=== PATIENT | female | born 1980 | race Caucasian/White ===

== ENCOUNTER → 2021-02-12 20:14 | Outpatient (CLI) | payer BC, SELFPAY | PROVIDERS: Visit Provider Nurse Practitioner Family | DX: Z20.822 Contact with and (suspected) exposure to COVID-19 (principal) | CPT/HCPCS: U0003 ==

== ENCOUNTER 2021-03-26 06:04 | Emergency (ER) | payer BC, SELFPAY ==
[2021-03-26] VITALS (7 sets, daily range): BP systolic 109–160; BP diastolic 68–102; PULSE 62–88; RESP 16–23; TEMP 36.8; O2SAT 98–100; BMI 29.0; BMI 33.3
--- NOTE | 2021-03-26 05:59 | ECG_ITS ---
APPROVED REPORT Exam: Resting ECG HR:60 bpm ECG Measurements Heart Rate 60 AXES WA 144 P 15 QRSd 82 QRS 38 QT 384 T 45 QTc 384 Conclusion Normal sinus rhythm Normal ECG Electronically signed by : Michael Ron MD 03/28/2021 17:51:47
--- NOTE | 2021-03-26 06:22 | XR_ITS ---
PROCEDURE INFORMATION: Exam: XR Chest Exam date and time: 03/26/2021 6:22 AM Age: 41 years old Clinical indication: Pain; On breathing; Additional info: Cp TECHNIQUE: Imaging protocol: XR of the chest. Views: 2 views. COMPARISON: No relevant prior studies available. FINDINGS: Lungs: No focal airspace disease. Pleural spaces: Unremarkable. No pleural effusion. No pneumothorax. Heart/Mediastinum: Cardiomediastinal silhouette is within normal limits. Bones/joints: Unremarkable. IMPRESSION: No acute cardiopulmonary abnormality.
--- NOTE | 2021-03-26 06:25 | HMH.EDCP ---
ED Disposition Clinical Impression: Elevated BP without diagnosis of hypertension Chest pain Qualifiers: Chest pain type: precordial pain Qualified Code(s): R07.2 - Precordial pain Disposition: Home, Self-Care Condition on Discharge: Good Instructions: DI for Chest Pain Additional Instructions: see pcp and card for follow up Referrals: Provider,Aiden, [Primary Care Provider] - Fabrice Mendoza MD [Staff Physician] - - Critical Care Critical Care Time: No Attestation: On , the high probability of a clinically significant, sudden or life threatening deterioration of the following system(s) required my full and direct attention, intervention and personal management. The time I documented below is in addition to time spent performing reported procedures but includes the following listed in this critical care notation. Medical Decision Making - Medical Records Medical records reviewed: Yes: I reviewed the patient's medical records. - [place] Inquiry Pt receiving controlled substance: No Vital Signs: 03/26/21 06:05 03/26/21 07:00 Temperature 98.2 F Temperature Source Oral Pulse Rate 68 Pulse Rate [Right] 88 Respiratory Rate 23 18 Blood Pressure 122/78 Blood Pressure [Left Arm] 160/102 H Blood Pressure Mean [Left Arm] 121 Blood Pressure Source [Left Arm] Manual Cuff/ Auscultation 02 Sat by Pulse Oximetry 100 98 Oxygen Delivery Method Room Air - Lab Data Lab results reviewed: Yes: I reviewed the patient's lab results. Lab Results 03/26/21 06:06: WBC 7.2, RBC 4.83, Hgb 14.6, Hct 43.8, MCV 90.6, MCH 30.1, MCHC 33.3, RDW 13.8, Plt Count 284, MPV 9.5, Neut % (Auto) 58.1, Lymph % (Auto) 34.8, [place] % (Auto) 5.1, Eos % (Auto) 1.0, Baso % (Auto) 1.0, Neut # (Auto) 4.2, Lymph # (Auto) 2.5, [place] # (Auto) 0.4, Eos # (Auto) 0.1, Baso # (Auto) 0.1, ESR 24 H 03/26/21 06:06: Sodium 139, Potassium 3.5, Chloride 108 H, Carbon Dioxide 23, Anion Gap 11.5, BUN 10, Creatinine 0.70, Estimated Creat Clear 150, Estimated GFR 92, Est GFR ( Amer) 111, Glucose 102 H, Calcium 9.1, Magnesium 1.9, Total Bilirubin 0.3, Direct Bilirubin 0.1, Conjugated Bilirubin 0.0, Indirect Bilirubin 0.2, Unconjugated Bilirubin 0.2, AST 28, ALT 16, Alkaline Phosphatase 116, Troponin I < 0.01, C-Reactive Protein 3.1, Total Protein 7.5, Albumin 4.0, Procalcitonin 0.046 03/26/21 06:06: Triglycerides 126, Cholesterol 156, LDL Cholesterol Direct 93.83 L, VLDL Cholesterol 25, HDL Cholesterol 39 L, Cholesterol/HDL Ratio 4.0 H 03/26/21 09:00: Troponin I < 0.01 Result diagrams: 03/26/21 06:06 03/26/21 06:06 Orders (Tests/Meds): ED MEDICATIONS Discontinued Medications Generic Name Dose Route Start Last Admin Trade Name Freq PRN Reason Stop Dose Admin Aspirin 324 mg 03/26/21 06:17 03/26/21 06:21 Aspirin 81mg Chewable Tablet PO 03/26/21 06:18 324 mg ONCE ONE Administration Sodium Chloride 1,000 mls @ 999 mls/hr 03/26/21 06:30 03/26/21 06:20 Sod Chlor 0.9% 1000ml Bag IV 03/26/21 07:30 999 mls/hr .Q1H1M SONJA Administration Metoprolol Tartrate 25 mg 03/26/21 08:20 03/26/21 08:30 Metoprolol Tartrate 50mg Tablet PO 03/26/21 08:21 25 mg ONCE ONE Administration Nitroglycerin 0.4 mg 03/26/21 06:17 03/26/21 06:20 Nitroglycerin 0.4mg Sl Tablet SL 03/26/21 06:18 0.4 1000units ONCE ONE Administration Ondansetron HCl 4 mg 03/26/21 06:17 03/26/21 06:19 Ondansetron 4mg/2ml Vial IV 03/26/21 06:18 4 mg ONCE ONE Administration ORDERS Category Date Time Status Troponin I Q3H Lab 03/26/21 12:30 Ordered Urinalysis and Microscopic Stat Lab 03/26/21 06:22 Ordered - Radiology Data #1 Image(s): Chest Image Reviewed: Yes I reviewed the patient's radiology image Preliminary Findings: Normal/NAD - ECG Data Tracing #1 Normal Sinus Rhythm: Yes Ischemic changes: non-specific ST-T wave changes - Physician Consults Physician Consulted: wes lopez Reason -: Pt cesar
--- NOTE | 2021-03-26 06:46 | CA_ITS ---
APPROVED REPORT EXAM: Comprehensive 2D, Doppler, and color-flow Echocardiogram Reactor Kettle Operator: Shruthi Prasad RDCS Ht: 5 ft 5 in Wt: 200lbs BSA: 1.98 BP: 122/78 mmHg Indications: CP,HTN 2D Dimensions LVOT 1.69 cm (M/F) 1.5-2.5 M-Mode Dimensions RVDd 2.42 cm (0.9-2.6) LA Diam 3.15 cm (1.9-4.0) LVDd 5.24 cm (3.5-5.7) Ao Diam 3.35 cm (2.0-3.7) LVDs 3.45 cm (3.5-5.7) IVSd 0.83 cm (0.6-1.1) PWd 0.79 cm (0.6-1.1) EF (Teich) 62.70% FS 34.20% EDV (Teich) 131.80 mL TAPSE 2.95 (<1.7) ESV (Teich) 49.10 mL LV Diastology E Decel Time 127.00 (160-240 msec) E/A Ratio 1.2 MED E' 14.30 (< 7 cm/sec) E'/MED E' Ratio 5.01 (>14) LAT E' 12.90 (<10 cm/sec) E/LAT E' Ratio 5.55 (>14) Mitral Valve MV E Max Everardo. 72.00 (40-130 cm/s) MV A Velocity 60.00 (40-130 cm/s) E/A Ratio 1.19 MV Decel. Time 127.00 (160-240 ms) MV PHT 37.00 ms Left Ventricle Left atrium is normal size, left ventricle is normal size, there is no concentric left ventricular hypertrophy, visually estimated ejection fraction 55% with no regional wall motion abnormality, diastolic parameters are within normal range. Right Ventricle Right atrium and right ventricle are normal size and contractility. Aortic Valve Aortic valve is grossly normal, there is no aortic stenosis or aortic insufficiency. Mitral Valve Mitral valve grossly normal, there is trace mitral regurgitation. Tricuspid Valve Tricuspid valve grossly normal, there is trace tricuspid regurgitation, tricuspid regurgitation jet velocity is inadequate for calculation of the right ventricular systolic pressure. Pulmonic Valve Pulmonic valve is poorly visualized. Great Vessels Aortic root is normal size. Inferior vena cava is normal size with normal inspiratory collapse. Pericardium No significant pericardial effusion noted. Conclusion 1. Normal left ventricular size, preserved left ventricular systolic function, visually estimated ejection fraction 55% with no regional wall motion abnormality, diastolic parameters are within normal range. 2. Trace mitral and tricuspid regurgitation. 3. No significant pericardial effusion noted. 4. Inferior vena cava is normal size with normal inspiratory collapse. Electronically signed by : Casa Fontenot MD 03/26/2021 19:41:56
[2021-03-26 07:09] LABS: Basophils # 0.1 K/mm3 (0-0.2); Eosinophils # 0.1 K/mm3 (0.0-0.4); Hematocrit 43.8 % (37.0-47.0); Hemoglobin 14.6 g/dL (12.2-16.2); Lymphocytes # 2.5 K/mm3 (0.7-4.5); Lymphocytes % 34.8 % (10-50); Mean Corpuscular HGB Conc 33.3 g/dL (31.8-35.4); Mean Corpuscular Hemoglobin 30.1 pg (27.0-31.2); Mean Corpuscular Volume 90.6 fl (81-99); Mean Platelet Volume 9.5 fl (7.4-10.4); Monocytes # 0.4 K/mm3 (0.1-1.0); Monocytes % 5.1 % (1.7-9.3); Neutrophils # 4.2 K/mm3 (1.8-7.8); Neutrophils % 58.1 % (37.0-80.0); Platelet Count 284 K/mm3 (142-424); Red Blood Count 4.83 M/mm3 (4.20-5.40); Red Cell Distribution Width 13.8 % (11.5-17.5); White Blood Count 7.2 K/mm3 (4.8-10.8)
[2021-03-26 07:15] LABS: Chloride 108 mmol/L (98-107); Potassium 3.5 mmoL/L (3.5-5.1); Sodium 139 mmol/L (136-145)
[2021-03-26 07:18] LABS: Alanine Aminotransferase 16 U/L (12-78); Alkaline Phosphatase 116 U/L (38-126); Anion Gap 11.5 mEq/L (5-15); Aspartate Amino Transferase 28 U/L (14-36); Bilirubin,Direct 0.1 mg/dl (0.0-0.4); Bilirubin,Indirect 0.2 mg/dL (0.0-0.9); Bilirubin,Total 0.3 mg/dl (0.2-1.3); Bilirubin,Unconjugated 0.2 mg/dL (0.0-1.1); Calcium 9.1 mg/dl (8.4-10.2); Carbon Dioxide 23 mmol/L (22.0-30.0); Glucose 102 mg/dl (74-100); Total Protein,Serum 7.5 g/dl (6.3-8.2)
[2021-03-26 07:19] LABS: Magnesium 1.9 mg/dl (1.6-2.3)
[2021-03-26 07:24] LABS: C-Reactive Protein 3.1 mg/L (0-4)
[2021-03-26 07:35] LABS: Erythrocyte Sedimentation Rate 24 mm/hr (0-20)
[2021-03-26 07:38] LABS: Blood Urea Nitrogen 10 mg/dl (7-17)
[2021-03-26 07:39] LABS: Creatinine Clearance Estimated 150 mL/min (50-200); Estimated Glomerular Filt Rate 92 ml/min (>60); GFR (African American) 111 ML/MIN (>60)
[2021-03-26 07:50] LABS: Troponin I < 0.01 ng/ml (0.00-0.034)
--- NOTE | 2021-03-26 08:20 | HMH.CNCARD ---
History of Present Illness Consult date: 03/26/21 Requesting physician: Omid Rangel Consult reason: chest pain Chief complaint: chest pain Additional Medical History:: 1. Implanted control, 02/2021 2. Elevated BP 3. FH of polycythemia vera in father 4. Recent wt gain 5. History of migraine headaches. History of present illness: 41-year-old white female with no prior medical history or routine medications presented to the emergency department for recurrent episodes of chest discomfort described as a pressure sensation over the last 24 hours. Patient relates headache and blurred vision yesterday with a history of migraine headaches for which she took Excedrin. After that blood pressure noted to be in the 160/109 mm Hg range by home blood pressure reading. She was able to lie down and go to sleep but was awakened around 4 AM with recurrent heaviness and pressure in the chest with radiation of numbness sensation to the left arm. Repeat blood pressure reading at home noted to be 160/102 mmHg and patient decided to come to the ER for further evaluation. In the ER patient was given sublingual nitroglycerin x2 with resultant resolution of symptoms and significant improvement in blood pressure. EKG is sinus rhythm with no acute ST segment changes. Preliminary echocardiogram performed in the ER shows preserved ejection fraction with no wall motion abnormalities. Initial troponin is normal. Cardiology consulted for evaluation recommendations Patient denies history of hypertension, tobacco use, daily alcohol use or diabetes. Mother in her mid 70s from a heart attack. Father is alive in a chcf with a history of A. fib and hypertension related cardiomyopathy for which he has a AICD. [facility] History *Have you ever received a pneumonia vaccine?: No *Have you received a flu vaccine this season?: No (2019) Other Surgeries: Yes: No Previous Surgery - *Social History Smoking Status: Never smoker Alcohol Intake: never *Occupational Status:: employed *Travel in the last 8 weeks: Inside the [place] Family Hx:: Non-contributory Meds Home Medications Medication Instructions Recorded Confirmed Type No Known Home Medications 02/12/21 02/12/21 History Allergies Allergy/AdvReac Type Severity Reaction Status Date / Time No Known Allergies Allergy Unverified 02/12/21 17:14 Exam Vital signs and Labs for Last 24 Hours: Temp Pulse Resp BP Pulse Ox 98.2 F 68 18 122/78 98 03/26/21 06:05 03/26/21 07:00 03/26/21 07:00 03/26/21 07:00 03/26/21 07:00 Laboratory Results - last 24 hr 03/26/21 06:06: WBC 7.2, RBC 4.83, Hgb 14.6, Hct 43.8, MCV 90.6, MCH 30.1, MCHC 33.3, RDW 13.8, Plt Count 284, MPV 9.5, Neut % (Auto) 58.1, Lymph % (Auto) 34.8, [place] % (Auto) 5.1, Eos % (Auto) 1.0, Baso % (Auto) 1.0, Neut # (Auto) 4.2, Lymph # (Auto) 2.5, [place] # (Auto) 0.4, Eos # (Auto) 0.1, Baso # (Auto) 0.1, ESR 24 H 03/26/21 06:06: Sodium 139, Potassium 3.5, Chloride 108 H, Carbon Dioxide 23, Anion Gap 11.5, BUN 10, Creatinine 0.70, Estimated Creat Clear 150, Estimated GFR 92, Est GFR ( Amer) 111, Glucose 102 H, Calcium 9.1, Magnesium 1.9, Total Bilirubin 0.3, Direct Bilirubin 0.1, Conjugated Bilirubin 0.0, Indirect Bilirubin 0.2, Unconjugated Bilirubin 0.2, AST 28, ALT 16, Alkaline Phosphatase 116, Troponin I < 0.01, C-Reactive Protein 3.1, Total Protein 7.5, Albumin 4.0 I & O for Last 24 hours: Intake & Output 03/23/21 03/24/21 03/25/21 03/26/21 11:59 11:59 11:59 11:59 Weight 200 lb - Constitutional no acute distress - *Routine HEENT Exam Head: Present: normocephalic Eye: Present: EOMI, PERRL ENT: Present: mucous membranes moist - *Routine Neck Exam Present: supple. Absent: lymphadenopathy - *Routine Respiratory Exam Present: CTA bilaterally - *Routine Cardiovascular Exam Present: RRR - *Routine Abdominal Exam Present: soft, normoactive bowel sounds. Absent: tenderness - *
[2021-03-26 08:24] LABS: Cholesterol 156 mg/dl (140-200); HDL Cholesterol 39 mg/dl (40-60); Procalcitonin 0.046 ng/mL (0.0-2.0); Triglycerides 126 mg/dl (30-150); VLDL Cholesterol 25 mg/dL (0-40)
--- NOTE | 2021-03-26 08:30 | PC.NURSE ---
TOD WANTED NTG PASTE TO BE REMOVED , REMOVED AT 0825
--- NOTE | 2021-03-26 08:31 | PC.NURSE ---
TOD SAID IF 2ND TROP IS OK SHE CAN BE DISCHARGED AND F/U IN OFFICE
[2021-03-26 08:35] LABS: Direct LDL Cholesterol 93.83 mg/dL (100-129)
--- NOTE | 2021-03-26 08:59 | PC.NURSE ---
2ND TROP SENT TO LAB
[2021-03-26 09:50] LABS: Troponin I < 0.01 ng/ml (0.00-0.034)
== END 2021-03-26 10:52 | disposition home or self-care (01) ==
PROVIDERS: Emergency Provider Emergency Medicine
DX: R07.2 Precordial pain (principal); R03.0 Elevated blood-pressure reading, without diagnosis of hypertension
CPT/HCPCS: 71046; 80048; 80061; 80076; 83735; 84145; 84484; 85025; 85651; 86140; 93005; 93306; 96365; 96375; 99283; J2405

== ENCOUNTER → 2021-04-09 11:00 | Outpatient (CLI) | payer BC, SELFPAY ==
--- NOTE | 2021-04-09 | CA_ITS ---
APPROVED REPORT Exam: Exercise Treadmill Technologist: Candice Young Ht: 5 ft 7 in Wt: 213 lbs BSA: 2.08 m2 HR: 58 bpm BP: 137/88 mmHg Indications: Chest pain Medical History Medications: Metoprolol, Etongestrel Stress Test Details Test: Janina HR Resting HR: 82 bpm Max Heart Rate (APMHR): 178.022263 bpm Max HR Achieved: 168 bpm Target HR (85% APMHR): 151.973602 bpm % of APMHR: 94.38 Recovery HR: 83 bpm BP Resting BP: 137.0/88.0 mmHg Max BP: 170.0/88.0 mmHg Recovery BP: 136.0/78.0 mmHg ECG Resting ECG: Normal sinus rhythm with NSSTTW abnormalities Clinical Reason for Termination: Dyspnea Exercise duration: 09:00 min Highest Stage Achieved: Exercise capacity: 10.1 METs Stress ECG Conclusion Negative stress test. Patient exercised on a janina protocol for 9 minutes to peak heart rate of 165 bpm (target heart rate 151 bpm) without chest pain, ST segment changes or significant arrhythmias. Total METS 10.1 with peak blood pressure 170/88 mmHg. See the nuclear report for further information. Test Summary REST 12:27 0.0 0.0 82 . 137/ 88 . . Stage 1 01:00 10.0 1.7 94 . . . . Stage 1 02:00 10.0 1.7 97 . . . . Stage 1 03:00 10.0 1.7 104 . 142/ 88 . . Stage 2 01:00 12.0 2.5 112 . . . . Stage 2 02:00 12.0 2.5 113 . . . . Stage 2 03:00 12.0 2.5 129 . 160/ 90 . . Stage 3 01:00 14.0 3.4 144 . . . . Stage 3 . . . . . . . Myoview Injected Stage 3 02:00 14.0 3.4 159 . . . . Stage 3 03:00 14.0 3.4 167 . . . Stop exercise at 09:00 RECOVERY 01:00 0.0 0.0 136 . . . . RECOVERY 02:00 0.0 0.0 114 . 170/ 88 . . RECOVERY 03:00 0.0 0.0 96 . 170/ 88 . . RECOVERY 04:00 0.0 0.0 87 . 170/ 88 . . RECOVERY 05:00 0.0 0.0 84 . 136/ 78 . . RECOVERY 05:17 0.0 0.0 89 . 136/ 78 . . Electronically signed by : Casa Fontenot MD 04/10/2021 06:33:26
--- NOTE | 2021-04-09 11:05 | NM_ITS ---
APPROVED REPORT Exam: Nuclear Stress Test Indication: Chest pain, HTN Patient Location: Outpatient Stress Tech: Candice Young NM Tech:Millie Sawyer, ARRT, RT (R)(N) Ht: 5 ft 7 in Wt: 210 lbs Bra Size: DD HR: 58 bpm BP: 137/88 mmHg BSA: 2.07 m2 BMI: 32.8 History: Chest pain, HTN Procedure: Patient exercised on Evgeny protocol 9:00 minutes and sec, resting heart rate 58 bpm, resting blood pressure 137/88 mmHg, with exercise maximum heart rate achived was 167 bpm which is 111 % of the maximum predicted heart rate and blood pressure was 160/90 mmHg. Test was stopped due to back spasm and SOA. Patient denied any complaint of chest pain. Patient has good exercise capacity, achieved 10.1 METs of workload on treadmill, the blood pressure response to exercise was Adequate. Electrocardiogram Resting electrocardiogram shows sinus rhythm, with exercise there is less than 1.[address] segment depression noted from the baseline EKG. The EKG portion of the exercise Myoview is negative for ischemia. Cardiac Stress and Resting SPECT Images: Cardiac Stress and Resting SPECT images were obtained using technetium 99m Myoview 29.2 mCi stress and 9.96 mCi at rest. Gated SPECT for analysis of segmental wall motion and calculation of the ejection fraction also done. Cardiac stress and resting SPECT images show uniform myocardial activity without segmental perfusion abnormality, computer derived ejection fraction is 55% with no regional wall motion abnormality, right ventricle is normal size and contractility. Conclusion: 1. The EKG portion of the exercise Myoview is negative for ischemia, patient has good exercise capacity achieved 10.1 METs of workload on treadmill, the blood pressure response to exercise was adequate, there was no exercise-induced chest discomfort. 2. No scintigraphic evidence of reversible ischemia seen, computer derived ejection fraction is 55% with no regional wall motion abnormality, right ventricle is normal size and contractility. 3. Normal exercise Myoview study. Electronically signed by : Casa Fontenot MD 04/10/2021 06:42:17
--- NOTE | 2021-04-09 14:09 | HMH.ITSHM ---
Current Home Medications as stated by this patient Gorge Frias or residential sales representative. []METOPROLOL ESTRONOGESTREL
== END ==
PROVIDERS: PCP Nurse Practitioner Family; Visit Provider Physician Assistant
DX: R07.9 Chest pain, unspecified (principal)
CPT/HCPCS: 78452; 93017; A9502

== ENCOUNTER → 2023-02-02 08:58 | Outpatient (CLI) | payer MEDICAID, SELFPAY ==
[2023-02-02 09:40] LABS: Basophils % 0.5 % (0.1-2.0); Eosinophils # 0.2 K/mm3 (0.0-0.4); Eosinophils % 4.2 % (0.1-12.0); Hemoglobin 14.5 g/dL (12.2-16.2); Lymphocytes # 2.1 K/mm3 (0.7-4.5); Lymphocytes % 37.8 % (10-50); Mean Corpuscular Volume 87.8 fl (81-99); Mean Platelet Volume 8.8 fl (7.4-10.4); Monocytes # 0.3 K/mm3 (0.1-1.0); Monocytes % 4.9 % (1.7-9.3); Neutrophils # 2.9 K/mm3 (1.8-7.8); Neutrophils % 52.7 % (37.0-80.0); Platelet Count 284 K/mm3 (142-424); Red Blood Count 5.01 M/mm3 (4.20-5.40); White Blood Count 5.4 K/mm3 (4.8-10.8)
[2023-02-02 10:09] LABS: Alanine Aminotransferase 29 U/L (12-78); Albumin Level 4.2 g/dl (3.5-5.0); Alkaline Phosphatase 128 U/L (38-126); Anion Gap 13.6 mEq/L (5-15); Aspartate Amino Transferase 24 U/L (14-36); Bilirubin,Indirect 0.7 mg/dL (0.0-0.9); Bilirubin,Total 0.7 mg/dl (0.2-1.3); Bilirubin,Unconjugated 0.7 mg/dL (0.0-1.1); Blood Urea Nitrogen 9 mg/dl (7-17); Calcium 9.1 mg/dl (8.4-10.2); Carbon Dioxide 21 mmol/L (22.0-30.0); Chloride 109 mmol/L (98-107); Chol/HDL Ratio 4.1 (1-3.5); Cholesterol 142 mg/dl (140-200); Estimated Glomerular Filt Rate 78 ml/min (>60); GFR (African American) 94 ML/MIN (>60); Glucose 93 mg/dl (74-100); HDL Cholesterol 35 mg/dl (40-60); Potassium 3.6 mmoL/L (3.5-5.1); Sodium 140 mmol/L (136-145); Total Protein,Serum 7.5 g/dl (6.3-8.2); Triglycerides 76 mg/dl (30-150); VLDL Cholesterol 15 mg/dL (0-40)
[2023-02-02 10:20] LABS: Direct LDL Cholesterol 88.56 mg/dL (100-129)
[2023-02-02 10:24] LABS: Free T4 (Free Thyroxine) 1.07 ng/dl (0.78-2.19)
[2023-02-02 10:39] LABS: Thyroid Stimulating Hormone 1.01 uIU/mL (0.465-4.68)
== END ==
PROVIDERS: PCP Nurse Practitioner Family; Visit Provider Nurse Practitioner
DX: R06.00 Dyspnea, unspecified (principal); I11.9 Hypertensive heart disease without heart failure; E11.9 Type 2 diabetes mellitus without complications; E78.5 Hyperlipidemia, unspecified; I63.9 Cerebral infarction, unspecified
CPT/HCPCS: 36415; 80048; 80061; 80076; 84439; 84443; 85025

== ENCOUNTER → 2023-04-22 08:13 | Outpatient (CLI) | payer MEDICAID, SELFPAY ==
[2023-04-22 10:05] LABS: Anion Gap 14.8 mEq/L (5-15); Blood Urea Nitrogen 13 mg/dl (7-17); Calcium 9.2 mg/dl (8.4-10.2); Carbon Dioxide 24 mmol/L (22.0-30.0); Chloride 103 mmol/L (98-107); Estimated Glomerular Filt Rate 78 ml/min (>60); GFR (African American) 94 ML/MIN (>60); Glucose 98 mg/dl (74-100); Potassium 3.8 mmoL/L (3.5-5.1); Sodium 138 mmol/L (136-145)
== END ==
PROVIDERS: PCP Nurse Practitioner Family; Visit Provider Physician Assistant
DX: I10 Essential (primary) hypertension (principal); E78.5 Hyperlipidemia, unspecified
CPT/HCPCS: 36415; 80048

== ENCOUNTER 2023-09-22 14:10 | Outpatient (CLI) | payer MEDICAID, SELFPAY ==
--- NOTE | 2023-09-22 | CA_ITS ---
APPROVED REPORT EXAM: Comprehensive 2D, Doppler, and color-flow Echocardiogram Archivist [employer] History: Shikha Carcamo CRT Ht: 5 ft 7 in Wt: 204lbs BSA: 2.04 BP: 122/83 mmHg Indications: Hyperlipidemia, Hypertension/HDD 2D Dimensions LA Volume 42.30 mL LA Volume Index 20.20 mL/m2 (M/F) 16-34 M-Mode Dimensions RVDd 2.72 cm (0.9-2.6) LA Diam 3.66 cm (1.9-4.0) LVDd 5.01 cm (3.5-5.7) LVDs 3.00 cm (3.5-5.7) IVSd 0.64 cm (0.6-1.1) PWd 0.64 cm (0.6-1.1) EF (Teich) 70.50% FS 40.10% EDV (Teich) 118.80 mL TAPSE 2.06 (<1.7) ESV (Teich) 35.00 mL LV Diastology E Decel Time 227 (160-240 msec) E/A Ratio 1.09 MED A' 8.40 cm/s LAT A' 9.90 cm/s Aortic Valve AO Peak GR. 7.70 mmHg Mitral Valve MV A Velocity 78.0 (40-130 cm/s) E/A Ratio 1.09 Pulmonary Valve PV Peak Velocity 80.0 (50-150 cm/s) Tricuspid Valve TR P. Velocity 225.00 cm/s RAP Estimate 10.00 mmHg RVSP 30.20 mmHg Left Ventricle The left ventricle is normal size. The left ventricular systolic function is normal. The left ventricular ejection fraction is within the normal range. There is normal left ventricular wall thickness. There is normal LV segmental wall motion. The left ventricular diastolic function is normal. LVEF is 55%. Right Ventricle The right ventricle is normal size. The right ventricular systolic function is normal. Atria The left atrium size is normal. The right atrium size is normal. There is no Doppler evidence of interatrial shunt. Aortic Valve The aortic valve opens well. There is no aortic valvular stenosis. No aortic regurgitation is present. Mitral Valve The mitral valve is normal in structure. No evidence of mitral valve stenosis. There is no mitral valve regurgitation noted. Tricuspid Valve The tricuspid valve leaflets are thin and pliable. Trace tricuspid regurgitation. RVSP is normal. Pulmonic Valve The pulmonary valve is normal in structure. Trace pulmonic regurgitation. Great Vessels The aortic root is normal in size. The ascending aorta is not well-visualized. IVC is normal in size and collapses >50% with inspiration. Pericardium There is no pericardial effusion. Other Information Study Quality: Fair Conclusion Normal biventricular systolic function. No significant valvular stenosis or regurgitation. Electronically signed by : Massiel Ulloa MD 09/24/2023 00:00:54
== END 2023-09-22 23:59 ==
LOC: RT 14:10
PROVIDERS: PCP Nurse Practitioner Family; Visit Provider Nurse Practitioner Family
DX: R06.02 Shortness of breath (principal)
CPT/HCPCS: 93306

== ENCOUNTER 2025-04-13 09:25 | Outpatient (CLI) | payer MEDICAID, SELFPAY ==
--- OUTSIDE RECORDS SUMMARY | 2025-02-23 08:30 | XMS_ITS | Encounter Summary ---
Author Organization Healthcare Address [address] [place] [address] Care Team Providers Care Wood Sawyer Name Role Phone Mariusz Jane Emma JUAN F Primary Care Provider [phone] Reason for Visit * Reason Comments Contraception Here for Depo, last Depo 12/09. Encounter Details Date Type Department Care Team (Latest Contact Info) Description 02/23/2025 8:30 AM EDT Clinical Support Obstetrics & Gynecology [address] [place] [address] Encounter for surveillance of injectable contraceptive (Primary Dx) Social History Tobacco Use Types Packs/Day Years Used Date Smoking Tobacco: Never Passive Smoke Exposure: Never Smokeless Tobacco: Never Alcohol Use Standard Drinks/Week Comments Yes 0 (1 standard drink = 0.6 oz pur e alcohol) a few times a year Humiliation, Afraid, Rape, and Kick questionnair e Answer Date Recorded Within the last year, have y ou been afraid of your partner or ex-partner? No 10/26/2024 Within the last year, have y ou been humiliated or emotionally abused in other ways by your partner or ex-partner? No Within the last year, have y ou been kicked, hit, slapped, or otherwise physically hurt by your partner or ex-partner? No 10/26/2024 Within the last year, have y ou been raped or forced to have any kind of sexual activity by your partner or ex-partner? No 10/26/2024 PHQ-2 Answer Date Recorded Patient Health Questionnaire-2 Score 0 01/19/2025 Hunger Vital Sign Answer Date Recorded Within the past 12 months, y ou worried that your food would run out before you got the money to buy more. Never true 10/27/19 25 Within the past 12 months, t he food you bought just didn't last and you didn't have money to get more. Never true 10/26/2024 PRAPARE - Transportation Answer Date Re corded In the past 12 months, has l ack of transportation kept you from medical appointments or from getting medications? No 12/2024 In the past 12 months, has l ack of transportation kept you from meetings, work, or from getting things needed for daily living? No 10/26/2024 Housing Stability Vital Sign Answer Carl e Recorded In the last 12 months, was t here a time when you were not able to pay the mortgage or rent on time? No 03/16/2024 In the last 12 months, how many places have you lived? 1 03/16/2024 In the last 12 months, was t here a time when you did not have a steady place to sleep or slept in a halfway (including now)? No 03/16/2024 PHQ-9 Answer Date Recorded Patient Health Questionnaire-9 Score 0 11/28/2024 Housing Stability Vital Sign Answer Carl e Recorded In the last 12 months, was t here a time when you were not able to pay the mortgage or rent on time? No 10/26/2024 In the past 12 months, how m any times have you moved where you were living? 0 10/26/2024 At any time in the past 12 m [facility], were you homeless or living in a halfway (including now)? No 10/26/2024 Safety and Environment Answer Date Gianluca rded Do you worry that your child may have been physically abused? No 12/08/2023 Do you worry that your child may have been sexua lly abused? No 12/08/2023 Are there any guns kept in o r around your home or where your child spends time? No 12/08/2023 Guns Unloaded or Locked Away Not on file Utilities Answer Date Recorded In the past 12 months has th e electric, gas, oil, or water company threatened to shut off services in your home? No 10/26/2024 PHQ-2A Answer Date Recorded Patient Health Questionnaire-2 Score 0 03/12/2023 Comments No Sex and Gender Information Value Date Recorded Sex Assigned at Female 07/09/2021 9:38 AM EST Legal Sex Female 6:20 PM EDT Gender Identity Female 07/09/2021 9:38 AM EST Sexual Orientation Straight 07/09/2021 9: 38 AM EST documented as of this encounter Plan of Treatment Upcoming Encounters Date Type Department Care Team (Late st Contact Info) Description 05/16/2025 8:00 AM EST Office Visit [facility] Endocrinology [address] [place] [address] Dasha Alves PA [address] [facility] [address] [place] [address] 10/19/2025 9:15 AM EDT Procedure Visit Obstetrics & Gynecology [address] [place] [address] Juanjo Reyes MD [address] [place] [address] 01/09/2026 9:20 AM EDT [facility] [address] [place] [address] Taya Galeana MD [address] [facility] [address] [place] [address] documented as of this encounter Visit Diagnoses Diagnosis Encounter for surveillance of injectable contraceptive- Primary documented in this encounter Administered Medications Inactive Administered Medications - up to 3 most recent administrations Medication Order MAR Action Action Date Dose Rate Site medroxyPROGESTERone (Depo-Provera) injection 150 mg 150 mg, Intramuscular, Once, 1 dose, On Gely 02/23/25 at 0900, RoutineIndications:Encounter for surveillance of injectable contraceptive Given 02/23/2025 8:21 AM EDT 150 mg Right Deltoid documented in this encounter Additional Health Concerns Assessment Noted Time PHQ-9 Depression Total Score: 0 11/29/19 25 8:22 AM EDT A fall risk assessment has been complete d for the patient 01/19/2025 8:01 AM EDT A Body Mass Index follow-up plan has been documented for the patient 02/23/2025 8:21 AM EDT documented as of this encounter Care Teams Wood Sawyer Relationship Specialty Start Date End Date Jane Vee APRN [address] [place] [id number] PCP - General 11/02/20 documented as of this encounter
--- OUTSIDE RECORDS SUMMARY | 2025-04-11 07:40 | XMS_ITS | Encounter Summary ---
Author Organization [facility] Address [address] [place] [address] Care Team Providers Care Patch Worker Name Role Phone Jane Vee APRN Primary Care Provider [phone] Reason for Referral * Consultation (Routine) - Authorized Specialty Diagnoses / Procedures Referred By Jaime t Referred To Contact Endocrinology Diagnoses Obesity (BMI 30-39.9) Dasha Alves PA [address] [address] Phone: tel: fax: [facility] Diabetes Education [address] [place] [address] Phone: tel: fax: Referral ID Status Reason Start Date Expiration Date V isits Requested Visits Authorized [id number] Authorized 04/11/2025 10/11/2026 1 1 Scheduling Instructions Wt mgt mnt * Consultation (Routine) - Authorized Specialty Diagnoses / Procedures Referred By Contac t Referred To Contact Diagnoses Obesity (BMI 30-39.9) Dasha Alves PA [address] [facility] [address] [place] [address] Phone: tel: fax: Referral ID Status Reason Start Date Expiration Date V isits Requested Visits Authorized [id number] Authorized 04/11/2025 10/11/2026 1 1 Reason for Visit * Reason Comments Obesity (BMI 30-39.9) * Consultation (Routine) - Closed Specialty Diagnoses / Procedures Referred By Contac t Referred To Contact Diagnoses Obesity (BMI 30-39.9) Dasha Alves PA 2[address] [facility] [address] [place] [address] Phone: tel: fax: Referral ID Status Reason Start Date Expiration Date Visits Re quested Visits Authorized [id number] Closed 02/08/2025 08/10/2026 1 1 Encounter Details Date Type Department Care Team (Late st Contact Info) Description 04/11/2025 7:40 AM EDT Office Visit [facility] [address] [place] [address] Dasha Alves PA [address] [address] Obesity (BMI 30-39.9) (Primary Dx); Benign essential hypertension; Encounter for nutritional counseling Social History Tobacco Use Types Packs/Day Years [...] Date Recorded Patient Health Questionnaire-2 Score 0 04/12/2025 Hunger Vital Sign Answer Date Recorded Within [...] place to sleep or slept in a fci (including now)? No 03/16/2024 PHQ-9 Answer Date [...] any time in the past 12 m [facility], were you homeless or living in a fci (including now)? No 10/26/2024 Safety and Environment [...] Recorded In the past 12 months has [employer], gas, oil, or water [employer] threatened to shut off services in your home? No 10/26/2024 PHQ-2A Answer Date Recorded Patient Health Questionnaire-2 Score 0 03/12/2023 Comments No Sex and Gender Information Value Date Recorded Sex Assigned at Female 07/09/2021 9:38 AM EST Legal Sex Female 6:20 PM EDT Gender Identity Female 07/09/2021 9:38 AM EST Sexual Orientation Straight 07/09/2021 9: 38 AM EST documented as of this encounter Last Filed Vital Signs Vital Sign Reading Time Taken Comments Blood Pressure 136/89 04/11/2025 7:35 AM EDT Pulse 84 04/11/2025 7:35 AM EDT Temperature - - Respiratory Rate - - Oxygen Saturation - - Inhaled Oxygen Concentration - - Weight 82.3 kg (181 lb 7 oz) 04/11/2025 7:35 AM EDT Height 172.7 cm (5' 8 ) 04/11/2025 7:35 AM EDT Body Mass Index 27.59 04/11/2025 7:35 AM EDT documented in this encounter Miscellaneous Notes * Patient Instructions - Dasha Alves PA - 04/11/2025 7:40 AM EDT Aim for 90 grams of protein * Progress Notes - Dasha Alves PA - 04/11/2025 7:40 AM EDT Subjective Gorge Frias is a 45 y.o. female who presents for a follow-up evaluation of weight management. PMH: CHAPARRO Weight Management Medications: phentermine 37.5 mg daily Side effects: none Goals at last visit: [x] 80 oz of water daily [x] No sugar-sweetened beverages [x] 5 servings fruits and vegetables daily [x] Physical activity: strength training 3 days per week, continue walking 30 minutes daily [x] Tracking intake - Calorie goal: 2770-7092 - Protein goal: 90g 24-hour Food Recall Breakfast: egg white bites with coffee Lunch: turkey lettuce wrap, orange, yogurt Dinner: steak, carrots, green beans Snacks: Drinks: water The following portions of the chart were reviewed this encounter and updated as appropriate: Tobacco Allergies Meds Problems Med Hx Surg Hx Fam Hx Review of Systems Constitutional: Negative. HENT: Negative. Eyes: Negative. Respiratory: Negative. Cardiovascular: Negative. Gastrointestinal: Negative. Endocrine: See HPI Genitourinary: Negative. Musculoskeletal: Negative. Allergic/Immunologic: Negative. Neurological: Negative. Hematological: Negative. Psychiatric/Behavioral: Negative. Objective Physical Exam Vitals reviewed. Constitutional: General: She is not in acute distress. Appearance: Normal appearance. She is well-developed. HENT: Head: Normocephalic and atraumatic. Eyes: General: No scleral icterus. Conjunctiva/sclera: Conjunctivae normal. Neck: Thyroid: No thyromegaly. Vascular: No JVD. Pulmonary: Effort: Pulmonary effort is normal. Musculoskeletal: General: Normal range of motion. Cervical back: Normal range of motion. Skin: Coloration: Skin is not jaundiced. Neurological: General: No focal deficit present. Mental Status: She is alert and oriented to person, place, and time. Psychiatric: Mood and Affect: Mood normal. Behavior: Behavior normal. Thought Content: Thought content normal. Judgment: Judgment normal. Vitals reviewed. Weight today: 181 Weight change since last visit: -21 BMI today: Body mass index is 27.59 kg/m??. Assessment/Plan Gorge was seen today for obesity (bmi 30-39.9). Diagnoses and all orders for this visit: Obesity (BMI 30-39.9) (Primary) - Follow Up [facility] - Follow Up DC; Future - Ambulatory referral to [facility] Diabetes Nutrition; Future - phentermine (Adipex-P) 37.5 MG tablet; Take 1 tablet by mouth daily before breakfast. Benign essential hypertension Encounter for nutritional counseling Obesity Body mass index is 27.59 kg/m??. Continue current goals Aim for 90 grams of protein Continue phentermine for another 4 weeks, if continuing to lose weight, will continue 4 more weeks after that before drug holiday Follow-up 4 weeks HTN: controlled I personally spent a total of 20 minutes on this encounter. This time includes face to face with patient, counseling and discussion and/or coordination of care. Electronically signed by: BELÉN Covington [facility] [address] [facility]. [address] [place]. [address] PHONE [phone] FAX: [phone] documented in this encounter Plan of Treatment Upcoming Encounters Date Type Department Care Team (Late st Contact Info) Description 05/16/2025 8:00 AM EST Office Visit [facility] Endocrinology [address] [place] [address] Dasha Alves PA 2[address] [facility] [address] [place] [address] 10/19/2025 9:15 AM EDT Procedure Visit Obstetrics & Gynecology [address] [place] [address] Juanjo Reyes MD [address] [place] [address] 01/09/2026 9:20 AM EDT [facility] Visit [facility] [address] [place] [address] Taya Galeana MD [address] [facility] [address] [place] [address] Scheduled Referrals Name Type Priority Associated Diagnoses Order Schedule Follow Up [facility] Outpatient Referral Routine Obesity (BMI 30-39.9) Expected: 05/09/2025, Expires: 10/13/2026 Ambulatory referral to [facility] Diabetes Nutrition Outpatient Referral Routine Obesity (BMI 30-39.9) Expected: 04/11/2025 (Approximate), Expires: 10/13/2026 documented as of this encounter Visit Diagnoses Diagnosis Obesity (BMI 30-39.9)- Primary Benign essential hypertension Essential hypertension, benign Encounter for nutritional counseling documented in this encounter Additional Health Concerns Assessment Noted Time PHQ-9 Depression Total Score: 0 11/29/19 25 8:22 AM EDT A fall risk assessment has been complete d for the patient 01/19/2025 8:01 AM EDT A Body Mass Index follow-up plan has been documented for the patient 04/11/2025 8:10 AM EDT documented as of this encounter Care Teams Patch Worker Relationship Specialty Start Date End Date Jane Vee APRN [address] [place] [address] PCP - General 11/02/20 documented as of this encounter
--- OUTSIDE RECORDS SUMMARY | 2025-04-12 14:15 | XMS_ITS | Encounter Summary ---
Author Organization Healthcare Address [address] [place] [address] Care Team Providers Care Optoelectronic Technician Name Role Phone Jane Vee APRN Primary Care Provider [phone] Reason for Visit * Reason Comments Office Visit Wants to get off of depo and try an different BC.Also wants to talk about menopause changes no other concerns. Encounter Details Date Type Department Care Team (Late st Contact Info) Description 04/12/2025 2:15 PM EDT Office Visit Obstetrics & Gynecology [address] [place] [address] Alannah Pearce APRN [address] [place] [address] Social History Tobacco Use Types Packs/Day Years [...] money to buy more. Never true 10/27/19 Within the past 12 months, t he [...] place to sleep or slept in a long term (including now)? No 03/16/2024 PHQ-9 Answer Date [...] any time in the past 12 m [facility], were you homeless or living in a long term (including now)? No 10/26/2024 Safety and Environment [...] Recorded In the past 12 months has e electric, gas, oil, or water company [...] Sign Reading Time Taken Comments Blood Pressure 135/93 04/12/2025 2:10 PM EDT Pulse 93 04/12/2025 2:10 PM EDT Temperature 36.8 C (98.3 F) 04/12/2025 2:10 PM EDT Respiratory Rate - - Oxygen Saturation 98% 04/12/2025 2:10 PM EDT Inhaled Oxygen Concentration - - Weight 83.5 kg (184 lb 1.4 oz) 04/12/2025 2:10 P M EDT Height - - Body Mass Index 27.99 04/11/2025 7:35 AM EDT documented in this encounter Functional Status * Over the past 2 weeks, how often have you been bothered by any of the following problems? Question Answer Date of Assessment Author Little interest or pleasure in doing things Not at all 04/12/2025 2:12 PM EDT Scottie Beck Feeling down, depressed, or hopeless Not at all 04/12/2025 2:12 PM EDT Scottie Beck Patient Health Questionnaire-2 Score 0 04/12/2025 2:12 PM EDT Bobbi Beck * How difficult have these problems made it for you to do your work, take care of things at home, or get along with other people? Answer Date of Assessment Author Not difficult at all 04/12/2025 2:12 PM EDT Bobbi Rebolledo documented as of this encounter Plan of Treatment Upcoming Encounters Date Type Department Care Team (Late st Contact Info) Description 05/16/2025 8:00 AM EST Office Visit [facility] [address] [place] [address] Dasha Alves PA [address] [place] [address] 10/19/2025 9:15 AM EDT Procedure Visit Obstetrics & Gynecology [address] [place] [address] Juanjo Reyes MD [address] [place] [address] 01/09/2026 9:20 AM EDT Office Visit [facility] [address], [address] [place] [address] Taya Galeana MD [address] [place] [address] documented as of this encounter Visit Diagnoses Not on filedocumented in this encounter Additional Health Concerns Assessment Noted Time PHQ-9 Depression Total Score: 0 11/29/19 8:22 AM EDT A fall risk assessment has been complete d for the patient 04/12/2025 2:12 PM EDT A Body Mass Index follow-up plan has been documented for the patient 04/11/2025 8:10 AM EDT documented as of this encounter Care Teams Optoelectronic Technician Relationship Specialty Start Date End Date Jane Vee APRN [address] [place] [address] PCP - General 11/02/20 documented as of this encounter
--- OUTSIDE RECORDS SUMMARY | 2025-04-13 09:31 | XMS_ITS | Encounter Summary ---
Author Organization Healthcare Address [address] [place] [address] Care Team Providers Care Data Officer Name Role Phone Mariusz Janealbino Carter APRN Primary Care Provider [phone] Encounter Details Date Type Department Care Team (Late Contact Info) Description 04/15/2021 Outside Procedure External Location [address] [place] [address] Provider, [place] Social History Tobacco Use Types Packs/Day Years Used Date Smoking Tobacco: Never Smokeless Tobacco: Never PHQ-2 Answer Date Recorded Patient Health Questionnaire-2 Score 0 12/11/2020 Comments Unknown Sex and Gender Information Value Date Recorded Sex Assigned at Female 07/09/2021 9:38 AM EST Legal Sex Female 6:20 PM EDT Gender Identity Female 07/09/2021 9:38 AM EST Sexual Orientation Straight 07/09/2021 9: 38 AM EST COVID-19 Exposure Response Date Recorded In the last month, have you been in contact with someone who was confirmed or suspected to have Coronavirus / COVID-19? No / Unsure 04/16/2021 1:53 PM EDT documented as of this encounter Plan of Treatment Upcoming Encounters Date Type Department Care Team ([facility] Contact Info) Description 05/16/2025 8:00 AM EST Office Visit [facility] Endocrinology [address] [place] [address] Dasha Alves PA [address] [place] [address] 10/19/2025 9:15 AM EDT Procedure Visit Obstetrics & Gynecology [address] [place] [address] Juanjo Reyes MD [address] [place] [address] 01/09/2026 9:20 AM EDT Office Visit [facility] Health [address] [place] [address] Taya Galeana MD [address] [place] [address] documented as of this encounter Procedures Procedure Name Priority Date/Time Associated Diagnosis Comments MAMMOGRAPHY BREAST SCREENING TOMOSYNTHESIS BILATERAL 04/15/2021 8:22 AM EDT documented in this encounter Results * Mammography Breast Screening Tomosynthesis Bilateral (04/15/2021 8:22 AM EDT) Anatomical Region Laterality Modality Breast Bilateral Mammography 04/15/2021 8:22 AM EDT Narrative 04/15/2021 11:10 AM EDT [facility] [address] [place] [address] Name: STEPH FRIAS Exam Date: 04/15/2021 : 1980 Age 41 Gender: F Physician: TULIO JONAS Facility: PSYCHIATRIC Facility HSV: Outpatient Exam: OLMAN SCRN MAMMO W/CAD BILAT MAMMOGRAM SCREENING BILATERAL HISTORY: Routine screening exam COMPARISON: 04/13/2020 and 04/07/2019 TECHNIQUE: Standard digital 2-D views with 3-D tomosynthesis DENSITY: There are scattered areas of fibroglandular density FINDINGS: Scattered areas of focal asymmetry are noted. No mass, suspicious calcifications or architectural distortion is present. IMPRESSION: No mammographic evidence of malignancy BI-RADS 2: Benign RECOMMENDATION: Annual mammography CAD was utilized during interpretation. The patient will be sent a letter from the mammography department with their mammography results. Dictated By: CHIKI GRAMAJO Transcribed By: Meir Gramajo Transcribed On: 04/15/2021 10:58 AM Electronically signed by: CHIKI GRAMAJO 04/15/2021 Thank you for referring FRIASSTEPH to [facility]. Legally authenticated by ROX LAYTON 2021-04-15 10:58:47 Procedure Note Provider, [facility] - 04/15/2021 [place] [address] Name: STEPH FRIAS Exam Date: 04/15/2021 : 1980 Age 41 Gender: F Physician: TULIO JONAS Facility: PSYCHIATRIC Facility HSV: Outpatient Exam: OLMAN SCRN MAMMO W/CAD BILAT MAMMOGRAM SCREENING BILATERAL HISTORY: Routine screening exam COMPARISON: 04/13/2020 and 04/07/2019 TECHNIQUE: Standard digital 2-D views with 3-D tomosynthesis DENSITY: There are scattered areas of fibroglandular density FINDINGS: Scattered areas of focal asymmetry are noted. No mass,suspicious calcifications or architectural distortion is present. IMPRESSION: No mammographic evidence of malignancy BI-RADS 2: Benign RECOMMENDATION: Annual mammography CAD was utilized during interpretation. The patient will be sent a letter from the mammography department withtheir mammography results. Dictated By: CHIKI GRAMAJO Transcribed By: Meir Gramajo Transcribed On: 04/15/2021 10:58 AM Electronically signed by: CHIKI GRAMAJO 04/15/2021 Thank you for referring PATRICIASTEPH to [facility]. Legally authenticated by ROX LAYTON 2021-04-15 10:58:47 us Generic [place] Provider IMG BI PROCEDURES Fi nal Result documented in this encounter Visit Diagnoses Not on filedocumented in this encounter Care Teams Data Officer Relationship Specialty Start Date End Date Jane Vee APRN [address] [place] [address] PCP - General 11/02/20 documented as of this encounter
--- OUTSIDE RECORDS SUMMARY | 2025-04-13 09:32 | XMS_ITS | Encounter Summary ---
Author Organization [facility] Address [address] [place] [address] Care Team Providers Care Shoe Associate Name Role Phone Jane eVe APRN Primary Care Provider [phone] Encounter Details Date Type Department Care Team (Latest Contact Info) Description 02/16/2025 Travel Social History Tobacco Use Types Packs/Day Years [...] place to sleep or slept in a half-way (including now)? No 03/16/2024 PHQ-9 Answer Date [...] any time in the past 12 m [facility], were you homeless or living in a half-way (including now)? No 10/26/2024 Safety and Environment [...] Description 05/16/2025 8:00 AM EST Office Visit [facility] Endocrinology [address] [place] [address] Dasha Alves PA [address] [facility] [address] [place] [address] 10/19/2025 9:15 AM EDT Procedure Visit Obstetrics & Gynecology [address] [place] [address] Juanjo Reyes MD [address] [place] [address] 01/09/2026 9:20 AM EDT Office Visit [facility] [address] [place] [address] Taya Galeana MD [address] [facility] [address] [place] [address] documented as of this encounter Visit Diagnoses Not on filedocumented in this encounter Additional Health Concerns Assessment Noted Time PHQ-9 Depression Total Score: 0 11/29/19 8:22 AM EDT A fall risk assessment has been complete d for the patient 01/19/2025 8:01 AM EDT A Body Mass Index follow-up plan has been documented for the patient 02/08/2025 10:14 AM EDT documented as of this encounter Care Teams Shoe Associate Relationship Specialty Start Date End Date Jane Vee APRN [address] [place] [address] PCP - General 11/02/20 documented as of this encounter
--- OUTSIDE RECORDS SUMMARY | 2025-04-13 09:32 | XMS_ITS | Encounter Summary ---
Author Organization Healthcare Address [address] [place] [address] Care Team Providers Care Employment Specialist/Program Manager Name Role Phone Jane Vee APRN Primary Care Provider Encounter Details Date Type Department Care Team (Late Contact Info) Description 04/13/2020 Orders Only External Location [address] [place] [address] Provider, External Social History Tobacco Use Types Packs/Day Years Used Date Smoking Tobacco: Never Assessed Comments Unknown Sex and Gender Information Value Date Recorded Sex Assigned at Female 07/09/2021 9:38 AM EST Legal Sex Female 6:20 PM EDT Gender Identity Female 07/09/2021 9:38 AM EST Sexual Orientation Straight 07/09/2021 9: 38 AM EST documented as of this encounter Plan of Treatment Upcoming Encounters Date Type Department Care Team (Late Contact Info) Description 05/16/2025 8:00 AM EST Office Visit [facility] Endocrinology [address] [place] [address] Dasha Alves PA [address] [address] 10/19/2025 9:15 AM EDT Procedure Visit Obstetrics & Gynecology [address] [place] [address] Juanjo Reyes MD [address] [facility] [address] 01/09/2026 9:20 AM EDT Office Visit [facility] [address] [place] [address] Taya Galeana MD [address] [place] [address] documented as of this encounter Procedures Procedure Name Priority Date/Time Associated Diagnosis Comments MAMMOGRAPHY OUTSIDE IMAGES 04/13/2020 9:10 AM EDT documented in this encounter Results * MAMMOGRAPHY OUTSIDE IMAGES (04/13/2020 9:10 AM EDT) Anatomical Region Laterality Modality Breast Mammography 04/13/2020 9:10 AM EDT us External Provider IMG BI PROCEDURES Final Result documented in this encounter Visit Diagnoses Not on filedocumented in this encounter Care Teams Employment Specialist/Program Manager Relationship Specialty Start Date End Date Jane Vee APRN [address] [place] [address] PCP - General 11/02/20 documented as of this encounter
--- OUTSIDE RECORDS SUMMARY | 2025-04-13 09:32 | XMS_ITS | Encounter Summary ---
Author Organization Healthcare Address [address] [place] [address] Care Team Providers Care Stone Cutter Name Role Phone Jane Vee APRN Primary Care Provider [phone] Encounter Details Date Type Department Care Team ([facility] Contact Info) Description 04/16/2022 Orders Only External Location [address] [place] [address] Provider, External Social History Tobacco Use Types Packs/Day Years Used Date Smoking Tobacco: Never Smokeless Tobacco: Never Alcohol Use Standard Drinks/Week Comments Yes 0 (1 standard drink = 0.6 oz pur e alcohol) socially PHQ-2 Answer Date Recorded Patient Health Questionnaire-2 Score 0 12/11/2020 Comments No Sex and Gender Information Value Date Recorded Sex Assigned at Female 07/09/2021 9:38 AM EST Legal Sex Female 6:20 PM EDT Gender Identity Female 07/09/2021 9:38 AM EST Sexual Orientation Straight 07/09/2021 9: 38 AM EST COVID-19 Exposure Response Date Recorded In the last 10 days, have yo u been in contact with someone who was confirmed or suspected to have Coronavirus/COVID-19? No / Unsure 04/09/2022 9:45 AM EDT documented as of this encounter Plan of Treatment Upcoming Encounters Date Type Department Care Team (Late Contact Info) Description 05/16/2025 8:00 AM EST [facility] [place] [address] Dasha Alves PA [address] [place] [address] 10/19/2025 9:15 AM EDT Procedure Visit Obstetrics & Gynecology [address] [place] [address] Juanjo Reyes MD [address] [place] [address] 01/09/2026 9:20 AM EDT Office Visit [facility] [address] [place] [address] Taya Galeana MD [address] [facility] [address] [place] [address] documented as of this encounter Procedures Procedure Name Priority Date/Time Associated Diagnosis Comments MAMMOGRAPHY OUTSIDE IMAGES 04/16/2022 8:23 AM EDT documented in this encounter Results * MAMMOGRAPHY OUTSIDE IMAGES (04/16/2022 8:23 AM EDT) Anatomical Region Laterality Modality Breast Mammography 04/16/2022 8:23 AM EDT us External Provider IMG BI PROCEDURES Final Result documented in this encounter Visit Diagnoses Not on filedocumented in this encounter Care Teams Stone Cutter Relationship Specialty Start Date End Date Jane Vee APRN [address] [place] [address] PCP - General 11/02/20 documented as of this encounter
--- OUTSIDE RECORDS SUMMARY | 2025-04-13 09:32 | XMS_ITS | Encounter Summary ---
Author Organization [facility] Address [address] [place] [address] Care Team Providers Care Cooler Man Name Role Phone Jane Vee APRN Primary Care Provider [phone] Encounter Details Date Type Department Care Team (Latest Contact Info) Description 04/12/2025 Travel Social History Tobacco Use Types Packs/Day [...] place to sleep or slept in a detention (including now)? No 03/16/2024 PHQ-9 Answer Date [...] were you homeless or living in a detention (including now)? No 10/26/2024 Safety and Environment [...] AM EST documented as of this encounter Functional Status * Over the [...] Description 05/16/2025 8:00 AM EST Office Visit [facility] [address] [place] [id number] Dasha Alves PA [address] [facility] [address] [place] [address] 10/19/2025 9:15 AM EDT Procedure Visit Obstetrics & Gynecology [address] [place] [address] Juanjo Reyes MD [address] [place] [address] 01/09/2026 9:20 AM EDT Office Visit [facility] [address], [address] [place] [address] Taya Galeana MD [address] [facility] [address] [place] [address] documented as of this encounter Visit Diagnoses [...] documented as of this encounter Care Teams Cooler Man Relationship Specialty Start Date End Date Jane Vee APRN [address] [place] [address] PCP - General 11/02/20 documented as of this encounter
--- OUTSIDE RECORDS SUMMARY | 2025-04-13 09:32 | XMS_ITS | Encounter Summary ---
Author Organization Healthcare Address [address] [place] [address] Care Team Providers Care Blow Pit Operator Name Role Phone Jane Vee APRN Primary Care Provider [phone] Reason for Visit * Reason Comments Med Refill Encounter Details Date Type Department Care Team (Late st Contact Info) Description 03/17/2025 Refill [facility] [address] [place] [address] Jane Vee APRN [address] [place] [address] Social History Tobacco Use Types Packs/Day Years [...] place to sleep or slept in a fdc (including now)? No 03/16/2024 PHQ-9 Answer Date [...] time in the past 12 m [facility], were you homeless or living in a fdc (including now)? No 10/26/2024 Safety and Environment [...] AM EST documented as of this encounter Miscellaneous Notes * Progress Notes - Raquel Vega - 03/21/2025 9:17 AM EDT 1 medication(s) has been approved per protocol. documented in this encounter Plan of Treatment Upcoming Encounters Date Type Department Care Team (Late st Contact Info) Description 05/16/2025 8:00 AM EST [facility] [address] [place] [address] Dasha Alves PA [address] [facility] [address] [place] [address] 10/19/2025 9:15 AM EDT Procedure Visit Obstetrics & Gynecology [address] [place] [address] Jaunjo Reyes MD [address] [place] [address] 01/09/2026 9:20 AM EDT [facility] [address] [place] [address] Taya Galeana MD [address] [facility] [address] [place] [address] documented as of this encounter [...] documented as of this encounter Care Teams Blow Pit Operator Relationship Specialty Start Date End Date Jane Vee APRN [address] [place] [address] PCP - General 11/02/20 documented as of this encounter
--- OUTSIDE RECORDS SUMMARY | 2025-04-13 09:32 | XMS_ITS | Encounter Summary ---
Author Organization [facility] Address [address] [place] [address] Care Team Providers Care Fingerer Name Role Phone Jane Vee APRN Primary Care Provider [phone] Encounter Details Date Type Department Care Team (Latest Contact Info) Description 04/11/2025 Travel Social History Tobacco Use Types Packs/Day [...] place to sleep or slept in a senior living (including now)? No 03/16/2024 PHQ-9 Answer Date [...] any time in the past 12 m [facility], were you homeless or living in a senior living (including now)? No 10/26/2024 Safety and Environment [...] Description 05/16/2025 8:00 AM EST Office Visit [facility] Endocrinology [address] [place] [address] Dasha Alves PA [address] [facility] [address] [place] [address] 10/19/2025 9:15 AM EDT Procedure Visit Obstetrics & Gynecology [address] [place] [address] Juanjo Reyes MD [address] [place] [address] 01/09/2026 9:20 AM EDT [facility] Visit [facility] [address] [place] [address] Taya Galeana MD [address] [facility] [address] [place] [address] documented as of this encounter [...] documented as of this encounter Care Teams Fingerer Relationship Specialty Start Date End Date Jane Vee APRN [address] [place] [address] PCP - General 11/02/20 documented as of this encounter
--- OUTSIDE RECORDS SUMMARY | 2025-04-13 09:32 | XMS_ITS | Clinical Summary ---
Author Organization [facility] Address [address] [place] [phone] Phone Care Team Providers Care Roads And Parking Lots Sweeper Operator Name Role Phone No Pcp, Provider Not In [facility] Primary Care Provid er Unavailable Allergies Active Allergy Reactions Criticality Noted Date Comments Latex Rash Low 10/26/2024 Medications medroxyPROGESTE Nura (DEPO-PROVERA) 150 mg/mL IM Suspension Inject 150 mg into the muscle. Active meloxicam (MOBIC) 15 mg Oral Tablet Take 15 mg by mouth daily. 11/07/2024 Active omeprazole (PRILOSEC) 40 mg Oral Capsule, Delayed Release(E.C.) Take 40 mg by mouth daily. 11/28/2024 Active L.acidoph-B.ani malis-B.longum (FLORAJEN DIGESTION) 15 billion cell Oral CapsuleIndicati ons:Tired Take 1 Capsule by mouth daily. 30 Capsule 5 12/01/2024 Active Active Problems Problem Noted Date Diagnosed Date Periodic headache syndrome, not intractable 12/2019 BMI 33.0-33.9,adult 02/22/2019 Benign essential hypertension 01/20/2019 High blood pressure 11/20/2018 Anxiety disorder 06/22/1983 Immunizations Immunization Administration Dates Next Due Hepatitis A, Adult 04/20/2018 Influenza Patient Reported 03/27/2012 Influenza Seasonal Injectable PF 08/18/2024 Influenza Vaccine Quadrivalent 03/11/2019 Influenza Vaccine Quadrivalent PF 07/03/2022,05/2020,04/09/2017 Tdap 04/10/2011 Medical History Medical History Date Comments Hypertension GERD (gastroesophageal reflux disease) Depression Anxiety Family History Medical History Relation Name Comments Cancer Father Tesfaye Frias Hearing Loss Father Tesfaye Frias Heart Disease Father Tesfaye Frias High Blood Pressure Father Tesfaye Frias Mental Illness Father Tesfaye Frias Stroke Father Tesfaye Frias Depression Mother Sri Frias Heart Disease Mother Sri Frias High Blood Pressure Mother Sri Frias High Cholesterol Mother Sri Frias Relation Name Status Comments Father Tesfaye Frias Alive Mother Sri Frias Alive Social History Tobacco Use Types Packs/Day Years Used Date Smoking Tobacco: Never Smokeless Tobacco: Never Alcohol Use Standard Drinks/Week Comments Not Currently 0 (1 standard drink = 0.6 oz pur e alcohol) occ PHQ-2 Answer Date Recorded PHQ-2 Total Score 0 01/31/2022 Sexually Active Control Partners Comments Yes Injection Male Comments No Sex and Gender Information Value Date Recorded Sex Assigned at Not on file Legal Sex Female 6:31 AM EDT Gender Identity Not on file Sexual Orientation Not on file Last Filed Vital Signs Vital Sign Reading Time Taken Comments Blood Pressure 122/88 12/01/2024 1:38 PM EDT Pulse 90 12/01/2024 1:38 PM EDT Temperature 36.7 C (98.1 F) 12/01/2024 1:38 PM EDT Respiratory Rate 18 11/12/2017 10:18 AM EDT Oxygen Saturation 98% 12/01/2024 1:38 PM EDT Inhaled Oxygen Concentration - - Weight 95.7 kg (211 lb) 12/01/2024 1:38 PM EDT Height 172.7 cm (5' 8 ) 12/01/2024 1:38 PM EDT Body Mass Index 32.08 12/01/2024 1:38 PM EDT Plan of Treatment Health Maintenance Due Date Last Done Comments Annual Wellness Exam 1982 Hepatitis B Vaccine (1 of 3 - 19+ 3-dose series) 1998 HPV/Pap Cotest 2009 DTaP/TDaP/Td (2 - Td or Tdap) 04/10/2021 04/10/2011 Cologuard 01/09/2024 Colon Cancer Screening 01/09/2024 Colonoscopy 01/09/2024 FIT 01/09/2024 Sigmoidoscopy 01/09/2024 Virtual Colonography 01/09/2024 COVID-19 Vaccine ( season) 2025 Influenza Vaccine (#1) 2025 5, 07/03/2022, 04/02/2020, Additional history exists Cervical Cancer Screening 10/08/2026 Pap Smear 10/08/2026 10/09/2023, 09/20, 04/10/2023, Additional history exists Breast Cancer Screening 11/15/2026 11/16/19 25, 11/15/2024, 04/20/2023, Additional history exists Meningococcal B Vaccine Aged Out No l onger eligible based on patient's age to complete this topic Pneumococcal Vaccine 0-49 Aged Out No longer eligible based on patient's age to complete this topic Goals Goal Patient Goal Type Associated Problems Recent Progress Patient-Stated? Author Blood Pressure < 140/90 Blood Pressure 122/88(2024 1:38 PM EDT) No Brianna Foley RMA Maintain a healthy diet, exercise regularly and maintain an ideal body weight General No Natividad Whyte CCMA Procedures Procedure Name Priority Date/Time Associated Diagnosis Comments AIRFIELD MANAGER CYTOLOGY REPORT Routine 12/22/2012 1 1:43 PM EDT from Last 3 Months or Most Recently Relevant to Health Maintenance Results * AIRFIELD MANAGER CYTOLOGY REPORT (12/22/2012 11:43 PM EDT) Analytics Developer Cytology Report PATIENT NAME:STEPH FRIAS Analytics Developer Cytology Report Accession Number Collected Date/Time Received Date/Time [id number] 12/22/12 23:43 EDT 12/22/12 23:43 EDT GY Specimen Source Specimen Vag/Cerv/Endocx?: Cervical/Endocervi redd Statement of Adequacy Satisfactory for Evaluation. Transformation Zone Present. Diagnosis NEGATIVE FOR INTRAEPITHELIAL LESION OR MALIGNANCY Fungal Organisms Present Consistent with Sheila. Comment The Pap Smear is a screening test that aids in the detection of cervical cancer and cancer precursors. Both false positive and false negative results can occur. The test should be used at regular intervals, and positive results should be confirmed before definitive therapy. Processed using the ThinPrep Rubber Goods Tester automated cytology screening device ([employer]). Logistics Assistant: MARILU 12/25/2012 Completed by: JAY Love (Electronically signed by) 12/25/2012 P Laboratory [facility] 12/22/2012 11:4 3 PM EDT us Heber Martinez MD PATHOLOGY ORDERABLES Final R esult [facility] [address] [place] [address] from Last 3 Months or Most Recently Relevant to Health Maintenance Insurance Care Teams Roads And Parking Lots Sweeper Operator Relationship Specialty Start Date End Date No Pcp, Provider Not In Epic PCP - General 08/04/24
--- OUTSIDE RECORDS SUMMARY | 2025-04-13 09:32 | XMS_ITS | Encounter Summary ---
Author Organization [facility] Address [address] [place] [address] Care Team Providers Care Desulphurizer Operator Name Role Phone Jane Vee APRN Primary Care Provider [phone] Encounter Details Date Type Department Care Team (Latest Contact Info) Description 02/23/2025 Travel Social History Tobacco Use Types Packs/Day [...] place to sleep or slept in a usp (including now)? No 03/16/2024 PHQ-9 Answer Date [...] any time in the past 12 m [facility], were you homeless or living in a usp (including now)? No 10/26/2024 Safety and Environment [...] Description 05/16/2025 8:00 AM EST Office Visit [facility] Endocrinology [address] [place] [address] Dasha Alves PA [address] [facility] [address] [place] [address] 10/19/2025 9:15 AM EDT Procedure Visit Obstetrics & Gynecology [address] [place] [address] Juanjo Reyes MD [address] [place] [address] 01/09/2026 9:20 AM EDT Office Visit [facility] [address], [address] [place] [address] Taya Galeana MD [address] [facility] [address] [place] [address] documented as of this encounter [...] documented as of this encounter Care Teams Desulphurizer Operator Relationship Specialty Start Date End Date Jane Vee APRN [address] [place] [address] PCP - General 11/02/20 documented as of this encounter
--- OUTSIDE RECORDS SUMMARY | 2025-04-13 09:32 | XMS_ITS | Clinical Summary ---
Author Organization [facility] Address [address] [place] [address] Care Team Providers Care Paint Line Production Supervisor Name Role Phone Jane Vee APRN Primary Care Provider [phone] Allergies Active Allergy Reactions Criticality Noted Date Comments Latex Rash Low 10/26/2024 Medications medroxyPROGEST ERone (Depo-Provera) 150 MG/ML injection Inject 1 mL (150 mg) into the muscle every 3 (three) months. Active meloxicam (Mobic) 15 MG tablet 12/04/19 25 Active Probiotic Product (Florajen Digestion) capsule Take 1 capsule by mouth 1 time each day. 12/02/19 25 Active omeprazole (PriLOSEC) [address] capsule TAKE 1 CAPSULE BY MOUTH ONCE DAILY. DO NOT CRUSH OR CHEW 90 capsule 2 03/21/20 25 Active phentermine (Adipex-P) 37.5 MG tabletIndicati ons:Obesity (BMI 30-39.9) Take 1 tablet by mouth daily before breakfast. 30 tablet 1 04/11/20 25 025 Active omeprazole (PriLOSEC) [address] capsule Take 1 capsule by mouth daily. Do not crush or chew. 30 capsule 3 11/29/19 25 025 Discontinued phentermine (Adipex-P) 37.5 MG tabletIndicati ons:Obesity (BMI 30-39.9) Take 1 tablet by mouth daily before breakfast. 30 tablet 1 08 025 Discontinued(Re order) Active Problems Problem Noted Date Diagnosed Date Obesity (BMI 30-39.9) 02/08/2025 Periodic headache syndrome, not intractable 12/2019 Benign essential hypertension 01/20/2019 Anxiety disorder 03/28/2015 Encounters Date Type Department Care Team Description 04/12/2025 2:15 PM EDT Office Visit Obstetrics & Gynecology [address] [place] [address] Alannah Pearce, WIRELESS RETAIL MANAGER 04/12/2025 Travel 04/11/2025 7:40 AM EDT Office Visit [facility] Endocrinology [address] [place] [address] Dasha Alves PA Obesity (BMI 30-39.9) (Primary Dx); Benign essential hypertension; Encounter for nutritional counseling 04/11/2025 Travel 04/04/2025 Travel 03/28/2025 Telephone [facility] Women's Health [address] [place] [address] Jana Salazar MD HCN Clinical Concern/Question 03/17/2025 Refill [facility] [address] [place] [address] Jane Vee, WIRELESS RETAIL MANAGER 02/23/2025 8:30 AM EDT Clinical Support Obstetrics & Gynecology [address] [place] [address] Encounter for surveillance of injectable contraceptive (Primary Dx) 02/23/2025 Travel 02/16/2025 Travel 02/08/2025 9:20 AM EDT Office Visit [facility] Endocrinology [address] [place] [address] Dasha Alves PA Obesity (BMI 30-39.9) (Primary Dx); Benign essential hypertension; Medication management; Nutritional counseling 02/08/2025 Travel 02/01/2025 Travel 01/19/2025 9:10 AM EDT - 01/19/2025 11:59 PM EDT Hospital Encounter Cardiac Imaging [address] [place] [address] Medication management Discharge Disposition: Home or Self Care 01/19/2025 8:00 AM EDT Office Visit [facility] Endocrinology [address] [place] [address] Dasha Alves PA Obesity (BMI 30.0-34.9) (Primary Dx); Medication management; Benign essential hypertension; CHAPARRO (obstructive sleep apnea) 01/19/2025 Travel 01/16/2025 Travel from Last 3 Months Immunizations Immunization Administration Dates Next Due Hep A, Adult 04/20/2018 Influenza, Unspecified 03/27/2012 Influenza, injectable, quadrivalent 03/11/2019 Influenza, injectable, quadrivalent, preservativ e free 07/03/2022,04/09/2017 Influenza, seasonal, injectable, preservative fr ee 08/18/2024 Tdap 04/10/2011 Family History Medical History Relation Name Comments Cancer Father Rory Frias Colon cancer Father Rory Frias Hearing loss Father Rory Frias Heart disease Father Rory Frias Mental illness Father Rory Frias Stroke Father Rory Frias Depression Mother Sri Frias Heart disease Mother Sri Frias Relation Name Status Comments Father Rory Frias Mother Sri Frias Social History Tobacco Use Types Packs/Day Years Used Date Smoking Tobacco: Never Passive Smoke Exposure: Never Smokeless Tobacco: Never Tobacco Cessation:Counseling Given: Not Answered Alcohol Use Standard Drinks/Week Comments Yes 0 [...] the past 12 months has th e [employer], gas, oil, or water company threatened to shut off services in your home? No 10/26/2024 PHQ-2A Answer Date Recorded Patient Health Questionnaire-2 Score 0 03/12/2023 Comments No Sex and Gender Information Value Date Recorded Sex Assigned at Female 07/09/2021 9:38 AM EST Legal Sex Female 6:20 PM EDT Gender Identity Female 07/09/2021 9:38 AM EST Sexual Orientation Straight 07/09/2021 9: 38 AM EST Last Filed Vital Signs Vital Sign Reading Time Taken Comments Blood Pressure 135/93 04/12/2025 2:10 PM EDT Pulse 93 04/12/2025 2:10 PM EDT Temperature 36.8 C (98.3 F) 04/12/2025 2:10 PM EDT Respiratory Rate 16 11/28/2024 8:20 AM EDT Oxygen Saturation 98% 04/12/2025 2:10 PM EDT Inhaled Oxygen Concentration - - Weight 83.5 kg (184 lb 1.4 oz) 04/12/2025 2:10 P M EDT Height 172.7 cm (5' 8 ) 04/11/2025 7:35 AM EDT Body Mass Index 27.99 04/11/2025 7:35 AM EDT Plan of Treatment Upcoming Encounters Date Type Department Care Team (Late st Contact Info) Description 05/16/2025 8:00 AM EST Office Visit [facility] Endocrinology [address] [place] [address] Dasha Alves PA [address] [place] [address] 10/19/2025 9:15 AM EDT Procedure Visit Obstetrics & Gynecology [address] [place] [address] Juanjo Reyes MD [address] [place] [address] 01/09/2026 9:20 AM EDT Office Visit [facility] Women[facility] Health [address] [place] [address] Taya Galeana MD [address] [place] [address] Health Maintenance Due Date Last Done Comments [facility]-HIV Screening 1979 [facility]-Hepatitis C Screening 1979 [facility]-Infant/Child/Adol SDOH Screenings 1979 [facility]-Hepatitis B Vaccines (1 of 3 - 19+ 3-dose series) 1998 [facility]-DTaP,Tdap,and Td Vaccines (2 - Td or Tdap) 04/10/2021 04/10/2011 CT Colonography 01/09/2024 FIT-DNA 01/09/2024 FIT 01/09/2024 FOBT 01/09/2024 Sigmoidoscopy 01/09/2024 [id number] Vaccine (2 - 2024- season) 2025 12/11/2020 [facility]-Influenza Vaccine (#1) 02/20/202508/18, 07/03/2022, 03/11/2019, Additional history exists [facility]- SDOH Screenings 04/28/2025 [facility]-Adult SDOH Screenings 04/28/2025 10/26/2024 [facility]-Depression Screening 04/12/2026 04/12/2025, 06/0 02/2025 [facility]-Pap Smear 10/15/2027 10/14/2024, 09/20, 04/10/2023, Additional history exists [facility]-Zoster Vaccines (1 of 2) 2029 [facility]-Cervical Cancer Screening 10/14/2029 [facility]-HPV/Cotest 10/14/2029 10/14/2024, 09/20, 04/10/2023, Additional history exists Colonoscopy 07/20/2034 07/20/2024 [facility]-Colorectal Cancer Screening 07/20/2034 [facility]-Hepatitis A Vaccines Aged Out 04/20/2018 No longer eligible based on patient's age to complete this topic [facility]-Obesity Intervention Completed 025, 02/23/2025, 02/08/2025, Additional history exists HPV Vaccines Aged Out No longer eligi ble based on patient's age to complete this topic [facility]-HIB Vaccines Aged Out No longer e ligible based on patient's age to complete this topic [facility]-IPV Vaccines Aged Out No longer e ligible based on patient's age to complete this topic [facility]-Pneumococcal Vaccine: Pediatrics (0 to 5 Years) and At-Risk Patients (6 to 49 Years) Aged Out No longer eligible based on patient's age to complete this topic [facility]-Rotavirus Vaccines Aged Out No lo nger eligible based on patient's age to complete this topic Procedures Procedure Name Priority Date/Time Associated Diagnosis Comments ECG ADULT Routine 01/19/2025 9:19 AM EDT Medication management REFERRED THINPREP PAP AND HPV (SO) Routine 10/14/2024 8:20 AM EDT Encounter for annual routine gynecological examination History of abnormal cervical Pap smear COLONOSCOPY EXTERNAL RESULT 07/20/2024 from Last 3 Months or Most Recently Relevant to Health Maintenance Results * ECG Adult (01/19/2025 9:19 AM EDT) EKG DIAGNOSIS CLASS Normal MUSE ECG Ventricular Rate 76 BPM MUSE ECG Atrial Rate 76 BPM MUSE ECG WA Interval 144 ms MUSE ECG QRSD Interval 76 ms MUSE ECG QT Interval 364 ms MUSE ECG QTC Interval 409 ms MUSE ECG P Mcintyre 8 degrees MUSE ECG R Mcintyre 13 degrees MUSE ECG T Wave Mcintyre 18 degrees MUSE ECG Diagnosis Normal sinus rhythm MUSE ECG Diagnosis Normal ECG MUSE ECG Diagnosis MUSE ECG Diagnosis Confirmed by Reji Mccall ([id number]) on 01/19/2025 4:53:26 PM MUSE ECG 01/19/2025 9:19 AM EDT 01/19/2025 4:53 PM EDT us Dasha MELISSA ECG ORDERABLES Final Result MUSE ECG * (ABNORMAL) Referred ThinPrep Pap and HPV (SO) (10/14/2024 8:20 AM EDT) Pap, Source Cx/Vagina 10/24/2024 5:45 PM EDT [facility] EER Referred ThinPrep Pap and HPV See Note 10/24/2024 5:45 PM EDT [facility]) PAP, THINPREP Abnormal(A) 10/24/2024 5:45 PM EDT [facility] ([facility]) High Risk HPV Normal 10/24/2024 5:45 PM EDT [facility] ([facility]) Swab Vaginal and cervical cytologic material / Unknown Non-blood Collection / Unknown 10/14/2024 8:20 AM EDT 10/14/2024 12:49 PM EDT Narrative [facility] ([facility]) - 10/24/2024 5:45 PM EDT Authorized individuals can access the [employer] Enhanced Report with an [employer] Connect account using the following link. Your local lab can assist you in obtaining the patient report if you don't have a Connect account. [email or web address] Performed By: [facility] [address] [place] [id number] Electric Frying Pan Repairer: Paulie Ramirez MD, PhD CLIA Number: [id number] SPECIMEN PART A. Cervical, Endocervical, Vaginal, ThinPrep Pap (Cotton Factor) CYTOLOGY HX Date of Last Menstrual Period: N FINAL DIAGNOSIS GENERAL CATEGORY: Abnormal INTERPRETATION: Atypical Squamous Cells Of Undetermined Significance (ASC-US). SPECIMEN ADEQUACY:Satisfactory for evaluation. Endocervical/transformation zone component present. Electronically Signed Out : Mikhail Medley MD Performed by: [facility] [address] [place] [address] [place] [address] Shona Prater MD, HR-HPV: Negative Test performed by the FDA-approved Hologic (Gen-Probe) APTIMA HPV test, which detects HPV genotypes: 16, 18, 31, 33, 35, 39, 45, 51, 52, 56, 58, 59, 66, and 68. This assay has been cleared for the specimen types listed below. Other specimen types have not been validated for this assay. -Clinician-collected ThinPrep Pap cervical specimens. Performed by: [facility] [place] [address] Shona Prater MD, Juanjo Reyes MD LAB REF LAB BLOOD AND FLUID ORD Final Result [facility] ([facility]) [address] [place] [address] * Colonoscopy External Result (07/20/2024) Anatomical Region Laterality Modality Endoscopy Narrative 07/20/2024 Ordered by an unspecified provider. us External Provider GI PROCEDURE ORDERABLES Final Result from Last 3 Months or Most Recently Relevant to Health Maintenance Insurance [facility]LY [facility] MEDICAID Care Teams Paint Line Production Supervisor Relationship Specialty Start Date End Date Jane Vee APRN [address] [place] [address] PCP - General 11/02/20
--- OUTSIDE RECORDS SUMMARY | 2025-04-13 09:32 | XMS_ITS | Encounter Summary ---
Author Organization Healthcare Address [address] [place] [address] Care Team Providers Care Toy Electric Train Repairer Name Role Phone Jane Vee APRN Primary Care Provider +1- [phone] Encounter Details Date Type Department Care Team (Late Contact Info) Description 04/15/2019 Orders Only External Location [address] [place] [address] Provider, External Social History Tobacco Use Types [...] Upcoming Encounters Date Type Department Care Team ([facility] Contact Info) Description 05/16/2025 8:00 AM EST Office Visit [facility] Endocrinology [address] [place] [address] Dasha Alves PA [address] [address] 10/19/2025 9:15 AM EDT Procedure Visit Obstetrics & Gynecology [address] [place] [address] Juanjo Reyes MD [address] [place] [address] 01/09/2026 9:20 AM EDT Office Visit [facility] [address], [address] [place] [address] Taya Galeana MD [address] [place] [address] documented as of this encounter Procedures Procedure Name Priority Date/Time Associated Diagnosis Comments MAMMOGRAPHY OUTSIDE IMAGES 04/15/2019 2:19 PM EDT documented in this encounter Results * MAMMOGRAPHY OUTSIDE IMAGES (04/15/2019 2:19 PM EDT) Anatomical Region Laterality Modality Breast Mammography 04/15/2019 2:19 PM EDT us External Provider IMG BI PROCEDURES Final Result documented in this encounter Visit Diagnoses Not on filedocumented in this encounter Care Teams Toy Electric Train Repairer Relationship Specialty Start Date End Date Jane Vee APRN [address] [place] [address] PCP - General 11/02/20 documented as of this encounter
--- OUTSIDE RECORDS SUMMARY | 2025-04-13 09:32 | XMS_ITS | Encounter Summary ---
Author Organization Healthcare Address [address] [place] [address] Care Team Providers Care Art Consultant Name Role Phone Jane Vee APRN Primary Care Provider +1 [phone] Reason for Visit * Reason Onset Date Comments HCN Clinical Concern/Question 03/28/2025 Encounter Details Date Type Department Care Team (Late st Contact Info) Description 03/28/2025 Telephone [facility] [address], [address] [place] [address] Jana Salazar MD [address] [place] [address] HCN Clinical Concern/Question Social History Tobacco Use Types Packs/Day Years [...] place to sleep or slept in a long-term (including now)? No 03/16/2024 PHQ-9 Answer Date [...] any time in the past 12 m [facility], were you homeless or living in a long-term (including now)? No 10/26/2024 Safety and Environment [...] as of this encounter Miscellaneous Notes * Telephone Encounter - Abida Jurado - 03/28/2025 3:43 PM EDT Clinical Concern/Question Reason for Call: please call pt to schedule in menopause clinic. x Best contact number: [phone] (mobile) Optimal time of day to reach caller: ANYTIME Additional comments/information from caller: None Note: Please do not reply to this message. Follow-up communication and further actions as a result of this message need to be communicated with the patient directly, if the patient is not active onMyChart. If the patient is active on MyChart, they will receive notification of the communication/outcome via MyChart. documented in this encounter Plan of Treatment Upcoming Encounters Date Type Department Care Team (Late st Contact Info) Description 05/16/2025 8:00 AM EST Office Visit [facility] Endocrinology [address] [place] [address] Dasha Alves, PA [address] [place] [address] 10/19/2025 9:15 AM EDT Procedure Visit Obstetrics & Gynecology [address] [place] [address] Juanjo Reyes MD [address] [place] [address] 01/09/2026 9:20 AM EDT [facility] Visit [facility] [address] [place] [address] Taya Galeana MD [address] [place] [address] documented as of this encounter [...] documented as of this encounter Care Teams Art Consultant Relationship Specialty Start Date End Date Jane Vee APRN [address] [place] [address] PCP - General 11/02/20 documented as of this encounter
--- OUTSIDE RECORDS SUMMARY | 2025-04-13 09:32 | XMS_ITS | Encounter Summary ---
Author Organization Healthcare Address [address] [place] [address] Care Team Providers Care Metal Molder Name Role Phone Jane Vee APRN Primary Care Provider +1 [phone] Encounter Details Date Type Department Care Team (Late Contact Info) Description 04/16/2022 Outside Procedure External Location [address] [place] [address] Tab Faust APRN, CN [address] [place] [address] Social History Tobacco Use Types Packs/Day Years [...] Description 05/16/2025 8:00 AM EST Office Visit [facility] Endocrinology [address] [place] [address] Dasha Alves PA [address] [facility] [address] [place] [address] 10/19/2025 9:15 AM EDT Procedure Visit Obstetrics & Gynecology [address] [place] [address] Juanjo Reyes MD [address] [place] [address] 01/09/2026 9:20 AM EDT Office Visit [facility] [address], 3rd [place] [address] Taya Galeana MD [address] [facility] [address] [place] [address] documented as of this encounter Procedures Procedure Name Priority Date/Time Associated Diagnosis Comments MAMMOGRAPHY BREAST SCREENING TOMOSYNTHESIS BILATERAL 04/16/2022 7:59 AM EDT documented in this encounter Results * Mammography Breast Screening Tomosynthesis Bilateral (04/16/2022 7:59 AM EDT) Anatomical Region Laterality Modality Breast Bilateral Mammography 04/16/2022 7:59 AM EDT Narrative 04/16/2022 11:42 AM EDT [facility] [address] [place] [address] Name: STEPH FRIAS Exam Date: 04/16/2022 : 1980 Age 42 Gender: F Physician: TAB FAUST Facility: [facility] Facility HSV: Outpatient Exam: OLMAN SCRN MAMMO W/CAD BILAT MAMMOGRAM SCREENING BILATERAL WITH TOMOSYNTHESIS HISTORY: Routine screening exam COMPARISON: April 15, 2021 FINDINGS: Standard views were obtained. There are scattered fibroglandular densities. Stable asymmetric densities. No mass, suspicious calcifications or architectural distortion is present. IMPRESSION: No mammographic evidence of malignancy. BI-RADS 2: Benign RECOMMENDATION: Annual mammography CAD was utilized during interpretation. The patient will be sent a letter from the mammography department with their mammography findings. Dictated By: CALISTA THRASHER Transcribed By: Calista Thrasher Transcribed On: 04/16/2022 11:32 AM Electronically signed by: CALISTA THRASHER 04/16/2022 Thank you for referring STEPH FRIAS to [facility]. Legally authenticated by POPE CALISTA [place] 2022-04-16 11:32:01 Procedure Note Provider, [facility] - 04/16/2022 [place] [address] Name: STEPH FRIAS Exam Date: 04/16/2022 : 1980 Age 42 Gender: F Physician: TAB FAUST Facility: [facility] Facility HSV: Outpatient Exam: OLMAN SCRN MAMMO W/CAD BILAT MAMMOGRAM SCREENING BILATERAL WITH TOMOSYNTHESIS HISTORY: Routine screening exam COMPARISON: April 15, 2021 FINDINGS: Standard views were obtained. There are scatteredfibroglandular densities. Stable asymmetric densities. No mass, suspicious calcificationsor architectural distortion is present. IMPRESSION: No mammographic evidence of malignancy. BI-RADS 2: Benign RECOMMENDATION: Annual mammography CAD was utilized during interpretation. The patient will be sent a letter from the mammography department withtheir mammography findings. Dictated By: CALISTA THRASHER Transcribed By: Calista Thrasher Transcribed On: 04/16/2022 11:32 AM Electronically signed by: CALISTA THRASHER 04/16/2022 Thank you for referring PATRICIA STEPH to [facility]. Legally authenticated by POPE CALISTA [place] 2022-04-16 11:32:01 Tab Slaterney STAINLESS STEEL FINISHER, CNM IMG BI PROCEDURES F inal Result documented in this encounter Visit Diagnoses Not on filedocumented in this encounter Care Teams Metal Molder Relationship Specialty Start Date End Date Jane Vee APRN [address] [place] [address] PCP - General 11/02/20 documented as of this encounter
--- OUTSIDE RECORDS SUMMARY | 2025-04-13 09:32 | XMS_ITS | Encounter Summary ---
Author Organization [facility] Address [address] [place] [address] Care Team Providers Care Direct Selling Counselor Name Role Phone Jane Vee APRN Primary Care Provider [phone] Reason for Referral * Consultation (Routine) - Closed Specialty Diagnoses / Procedures Referred By Contlucia t Referred To Contact Endocrinology Diagnoses Obstructive sleep apnea syndrome Colby Santos MD [address] [facility], [address] [address] Phone: tel: fax: [facility] Endocrinology [address] [place] [address] Phone: tel: fax: Referral ID Status Reason Start Date Expiration Date V isits Requested Visits Authorized [id number] Closed Specialty Services Required 11/22/2024 05/24/2026 1 1 Encounter Details Date Type Department Care Team (Late st Contact Info) Description 11/22/2024 Community [facility] [address] [place] [address] Colby Santos MD [address] [facility], [address] [address] Obstructive sleep apnea syndrome (Primary Dx) Social History Tobacco Use Types [...] Date Recorded Patient Health Questionnaire-2 Score 0 10/26/2024 Hunger Vital Sign Answer Date Recorded Within [...] Date Recorded Patient Health Questionnaire-9 Score 0 10/26/2024 Housing Stability Vital Sign Answer Carl e Recorded In the last 12 months, was t here a time when you were not able to pay the mortgage or rent on time? No 10/26/2024 In the past 12 months, how m any times have you moved where you were living? 0 10/26/2024 At any time in the past 12 m [facility], were you homeless or living [...] [facility] [address] [place] [address] Dasha Alves PA [address] [place] [address] 10/19/2025 9:15 AM EDT Procedure Visit Obstetrics & Gynecology [address] [place] [address] Juanjo Reyes MD [address] [place] [address] 01/09/2026 9:20 AM EDT Office Visit [facility] [address], [address] [place] [address] Taya Galeana MD [address] [place] [address] Scheduled Referrals Name Type Priority Associated Diagnoses Order Schedule Ambulatory referral to Endocrinology Outpatient Referral Routine Obstructive sleep apnea syndrome Expected: 11/22/2024 (Approximate), Expires: 05/26/2026 documented as of this encounter Visit Diagnoses Diagnosis Obstructive sleep apnea syndrome- Primary Obstructive sleep apnea (adult) (pediatric) documented in this encounter Additional Health Concerns Assessment Noted Time PHQ-9 Depression Total Score: 0 10/27/19 8:16 AM EDT A fall risk assessment has been complete d for the patient 10/14/2024 8:09 AM EDT A Body Mass Index follow-up plan has been documented for the patient 10/26/2024 9:46 AM EDT documented as of this encounter Care Teams Direct Selling Counselor Relationship Specialty Start Date End Date Jane Vee APRN [address] [place] [address] PCP - General 11/02/20 documented as of this encounter
--- OUTSIDE RECORDS SUMMARY | 2025-04-13 09:32 | XMS_ITS | Encounter Summary ---
Author Organization [facility] Address [address] [place] [address] Care Team Providers Care Dehydrator Operator Name Role Phone Jane Vee APRN Primary Care Provider +1 [phone] Encounter Details Date Type Department Care Team (Latest Contact Info) Description 04/04/2025 Travel Social History Tobacco Use Types Packs/Day [...] place to sleep or slept in a custodial (including now)? No 03/16/2024 PHQ-9 Answer Date [...] any time in the past 12 m [facility], were you homeless or living in a custodial (including now)? No 10/26/2024 Safety and Environment [...] Description 05/16/2025 8:00 AM EST Office Visit [facility] Endocrinology [address] [place] [address] Dasha Alves PA [address] [facility] [address] [place] [address] 10/19/2025 9:15 AM EDT Procedure Visit Obstetrics & Gynecology [address] [place] [address] Juanjo Reyes MD [address] [place] [address] 01/09/2026 9:20 AM EDT Office Visit [facility] [address], [address] [place] [address] Taya Galeana MD [address] [facility] [address] [place] [address] documented as of this encounter [...] documented as of this encounter Care Teams Dehydrator Operator Relationship Specialty Start Date End Date Jane Vee APRN [address] [place] [address] PCP - General 11/02/20 documented as of this encounter
--- OUTSIDE RECORDS SUMMARY | 2025-04-13 09:32 | XMS_ITS | Encounter Summary ---
Author Organization Healthcare Address [address] [place] [address] Care Team Providers Care Decker Operator Name Role Phone Jane Vee APRN Primary Care Provider +1- [phone] Encounter Details Date Type Department Care Team (Late Contact Info) Description 04/07/2019 Orders Only External Location [address] [place] [address] Provider, External Social History Tobacco Use Types [...] Upcoming Encounters Date Type Department Care Team ([facility] Contact Info) Description 05/16/2025 8:00 AM EST Office Visit [facility] Endocrinology [address] [place] [address] Dasha Alves PA [address] [address] 10/19/2025 9:15 AM EDT Procedure Visit Obstetrics & Gynecology [address] [place] [address] Juanjo Reyes MD [address] [facility] [place] [address] 01/09/2026 9:20 AM EDT Office Visit [facility] [address], [address] [place] [address] Taya Galeana MD [address] [place] [address] documented as of this encounter Procedures Procedure Name Priority Date/Time Associated Diagnosis Comments MAMMOGRAPHY OUTSIDE IMAGES 04/07/2019 2:54 PM EDT documented in this encounter Results * MAMMOGRAPHY OUTSIDE IMAGES (04/07/2019 2:54 PM EDT) Anatomical Region Laterality Modality Breast Mammography 04/07/2019 2:54 PM EDT us External Provider IMG BI PROCEDURES Final Result documented in this encounter Visit Diagnoses Not on filedocumented in this encounter Care Teams Decker Operator Relationship Specialty Start Date End Date Jane Vee APRN [address] [place] [address] PCP - General 11/02/20 documented as of this encounter
--- OUTSIDE RECORDS SUMMARY | 2025-04-13 09:32 | XMS_ITS | Encounter Summary ---
Author Organization Healthcare Address [address] [place] [address] Care Team Providers Care Architectural Design Lecturer Name Role Phone VeeJane bejarano APRN Primary Care Provider +1 [phone] Encounter Details Date Type Department Care Team (Late Contact Info) Description 04/15/2021 Orders Only External Location [address] [place] [address] Provider, External Social History Tobacco Use Types [...] EST Office Visit [facility] [address] [place] [address] Dasha Alves PA [address] [facility] [address] [place] [address] 10/19/2025 9:15 AM EDT Procedure Visit Obstetrics & Gynecology [address] [place] [address] Juanjo Reyes MD [address] [place] [address] 01/09/2026 9:20 AM EDT Office Visit [facility] Women's Health [address], [address] [place] [address] Taya Galeana MD [address] [place] [address] documented as of this encounter Procedures Procedure Name Priority Date/Time Associated Diagnosis Comments MAMMOGRAPHY OUTSIDE IMAGES 04/15/2021 8:42 AM EDT documented in this encounter Results * MAMMOGRAPHY OUTSIDE IMAGES (04/15/2021 8:42 AM EDT) Anatomical Region Laterality Modality Breast Mammography 04/15/2021 8:42 AM EDT us External Provider IMG BI PROCEDURES Final Result documented in this encounter Visit Diagnoses Not on filedocumented in this encounter Care Teams Architectural Design Lecturer Relationship Specialty Start Date End Date Jane Vee APRN [address] [place] [address] PCP - General 11/02/20 documented as of this encounter
--- OUTSIDE RECORDS SUMMARY | 2025-04-13 09:32 | XMS_ITS | Encounter Summary ---
Author Organization Healthcare Address [address] [place] [address] Care Team Providers Care Regional Transfer Liaison Name Role Phone Jane Vee APRN Primary Care Provider +1- [phone] Encounter Details Date Type Department Care Team (Late Contact Info) Description 04/15/2019 Orders Only External Location [address] [place] [address] Provider, External Social History Tobacco Use Types [...] Upcoming Encounters Date Type Department Care Team ([facility] Contact Info) Description 05/16/2025 8:00 AM EST Office Visit [facility] Endocrinology [address] [place] [address] Dasha Alves PA [address] [address] 10/19/2025 9:15 AM EDT Procedure Visit Obstetrics & Gynecology [address] [place] [address] Juanjo Reyes MD [address] [place] [address] 01/09/2026 9:20 AM EDT Office Visit [facility] [address], [address] [place] [address] Taya Galeana MD [address] [place] [address] documented as of this encounter Procedures Procedure Name Priority Date/Time Associated Diagnosis Comments US BREAST OUTSIDE IMAGES 04/15/2019 2:36 PM EDT documented in this encounter Results * US BREAST OUTSIDE IMAGES (04/15/2019 2:36 PM EDT) Anatomical Region Laterality Modality Breast Mammography 04/15/2019 2:36 PM EDT us External Provider IMG BI PROCEDURES Final Result documented in this encounter Visit Diagnoses Not on filedocumented in this encounter Care Teams Regional Transfer Liaison Relationship Specialty Start Date End Date Jane Vee APRN [address] [place] [address] PCP - General 11/02/20 documented as of this encounter
--- OUTSIDE RECORDS SUMMARY | 2025-04-13 09:32 | XMS_ITS | Encounter Summary ---
Author Organization Healthcare Address [address] [place] [address] Care Team Providers Care Reducing Machine Operator Name Role Phone Jane Vee APRN Primary Care Provider +1 [phone] Encounter Details Date Type Department Care Team (Late Contact Info) Description 04/20/2023 Orders Only External Location [address] [place] [address] Provider, External Social History Tobacco Use Types Packs/Day Years Used Date Smoking Tobacco: Never Passive Smoke Exposure: Never Smokeless Tobacco: Never Alcohol Use Standard Drinks/Week Comments Yes 0 (1 standard drink = 0.6 oz pur e alcohol) socially PHQ-2 Answer Date Recorded Patient Health Questionnaire-2 Score 0 03/12/2023 PHQ-2A Answer Date Recorded Patient Health Questionnaire-2 [...] Description 05/16/2025 8:00 AM EST Office Visit [facility] Endocrinology [address] [place] [address] Dasha Alves, PA [address] [facility] [address] [place] [address] 10/19/2025 9:15 AM EDT Procedure Visit Obstetrics & Gynecology [address] [place] [address] Juanjo Reyes MD [address] [place] [address] 01/09/2026 9:20 AM EDT [facility] Visit [facility] [address] [place] [address] Taya Galeana MD [address] [place] [address] documented as of this encounter Procedures Procedure Name Priority Date/Time Associated Diagnosis Comments MAMMOGRAPHY OUTSIDE IMAGES 04/20/2023 8:29 AM EDT documented in this encounter Results * MAMMOGRAPHY OUTSIDE IMAGES (04/20/2023 8:29 AM EDT) Anatomical Region Laterality Modality Breast Mammography 04/20/2023 8:29 AM EDT us External Provider IMG BI PROCEDURES Final Result documented in this encounter Visit Diagnoses Not on filedocumented in this encounter Additional Health Concerns Assessment Noted Time A Body Mass Index follow-up plan has been documented for the patient 03/12/2023 10:47 AM EDT documented as of this encounter Care Teams Reducing Machine Operator Relationship Specialty Start Date End Date Jane Vee, JUAN F [address] [place] [address] PCP - General 11/02/20 documented as of this encounter
--- OUTSIDE RECORDS SUMMARY | 2025-04-13 09:32 | XMS_ITS | Encounter Summary ---
Author Organization Healthcare Address [address] [place] [address] Care Team Providers Care Precinct Police Sergeant Name Role Phone Jane Vee APRN Primary Care Provider +1- [phone] Encounter Details Date Type Department Care Team (Late Contact Info) Description 01/31/2020 Orders Only External Location [address] [place] [address] Provider, External Social History Tobacco Use Types [...] 8:00 AM EST Office Visit [facility] Endocrinology [address] [place] [address] Dasha Alves PA [address] [address] 10/19/2025 9:15 AM EDT Procedure Visit Obstetrics & Gynecology [address] [place] [address] Juanjo Reyes MD [address] [facility] [place] [address] 01/09/2026 9:20 AM EDT Office Visit [facility] [address], [address] [place] [address] Taya Galeana MD [address] [place] [address] documented as of this encounter Procedures Procedure Name Priority Date/Time Associated Diagnosis Comments MAMMOGRAPHY OUTSIDE IMAGES 01/31/2020 2:40 PM EDT documented in this encounter Results * MAMMOGRAPHY OUTSIDE IMAGES (01/31/2020 2:40 PM EDT) Anatomical Region Laterality Modality Breast Mammography 01/31/2020 2:40 PM EDT us External Provider IMG BI PROCEDURES Final Result documented in this encounter Visit Diagnoses Not on filedocumented in this encounter Care Teams Precinct Police Sergeant Relationship Specialty Start Date End Date Jane Vee APRN [address] [place] [address] PCP - General 11/02/20 documented as of this encounter
--- OUTSIDE RECORDS SUMMARY | 2025-04-13 09:32 | XMS_ITS | Encounter Summary ---
Author Organization Healthcare Address [address] [place] [address] Care Team Providers Care Radio Communications Mechanician Name Role Phone Domingo Pollock APRN Primary Care Provider [phone] Encounter Details Date Type Department Care Team (Late Contact Info) Description 04/20/2023 Outside Procedure External Location [address] [place] [address] Domingo Pollock COBOL ENGINEER [address] [place] [address] Social History Tobacco Use Types [...] Description 05/16/2025 8:00 AM EST Office Visit [facility] Endocrinology [address] [place] [address] Dasha Alves PA [address] [facility] [address] [place] [address] 10/19/2025 9:15 AM EDT Procedure Visit Obstetrics & Gynecology [address] [place] [address] Juanjo Reyes MD [address] [place] [address] 01/09/2026 9:20 AM EDT Office Visit [facility] [address] [place] [address] Taya Galaena MD [address] [facility] [address] [place] [address] documented as of this encounter Procedures Procedure Name Priority Date/Time Associated Diagnosis Comments MAMMOGRAPHY BREAST SCREENING TOMOSYNTHESIS BILATERAL 04/20/2023 8:10 AM EDT documented in this encounter Results * Mammography Breast Screening Tomosynthesis Bilateral (04/20/2023 8:10 AM EDT) Anatomical Region Laterality Modality Breast Bilateral Mammography 04/20/2023 8:10 AM EDT Narrative 04/20/2023 9:42 AM EDT [id number] [place] [address] Name: STEPH FRIAS Exam Date: 04/20/2023 : 1980 Age 43 Gender: F Physician: DOMINGO POLLOCK Facility: [facility] Facility HSV: Outpatient Exam: [facility]MAN SCRN MAMMO W/CAD BILAT MAMMOGRAM SCREENING BILATERAL WITH TOMOSYNTHESIS HISTORY: Routine screening exam COMPARISON: April 16, 2022 FINDINGS: Standard views were obtained. There are scattered fibroglandular densities. No mass, suspicious calcifications or architectural distortion is present. IMPRESSION: No mammographic evidence of malignancy. BI-RADS 1: Negative. RECOMMENDATION: Annual mammography CAD was utilized during interpretation. The patient will be sent a letter from the mammography department with their mammography findings. Dictated By: CALISTA THRASHER Transcribed By: Calista Thrasher Transcribed On: 04/20/2023 9:29 AM Electronically signed by: CALISTA THRASHER 04/20/2023 Thank you for referring STEPH FRIAS to [facility]. Legally authenticated by POPE CALISTA [place] 2023-04-20 09:29:00 Procedure Note Provider, [facility] 04/20/2023 [place] [address] Name: STEPH FRIAS Exam Date: 04/20/2023 : 1980 Age 43 Gender: F Physician: DOMINGO POLLOCK Facility: [facility] Facility HSV: Outpatient Exam: [facility] SCRN MAMMO W/CAD BILAT MAMMOGRAM SCREENING BILATERAL WITH TOMOSYNTHESIS HISTORY: Routine screening exam COMPARISON: April 16, 2022 FINDINGS: Standard views were obtained. There are scatteredfibroglandular densities. No mass, suspicious calcifications or architectural distortionis present. IMPRESSION: No mammographic evidence of malignancy. BI-RADS 1: Negative. RECOMMENDATION: Annual mammography CAD was utilized during interpretation. The patient will be sent a letter from the mammography department withtheir mammography findings. Dictated By: CALISTA THRASHER Transcribed By: Calista Thrasher Transcribed On: 04/20/2023 9:29 AM Electronically signed by: CALISTA THRASHER 04/20/2023 Thank you for referring STEPH FRIAS to [facility]. Legally authenticated by POPE CALISTA [place] 2023-04-20 09:29:00 us Domingo Pollock COBOL ENGINEER IMG BI PROCEDURES Final Res ult documented in this encounter Visit Diagnoses Not on filedocumented in this encounter Additional Health Concerns Assessment Noted Time A Body Mass Index follow-up plan has been documented for the patient 03/12/2023 10:47 AM EDT documented as of this encounter Care Teams Radio Communications Mechanician Relationship Specialty Start Date End Date Domingo Pollock APRN [address] [place] [id number] PCP - General 11/02/20 documented as of this encounter
[2025-04-13 09:50] LABS: Hematocrit 43.4 % (37.0-47.0); Hemoglobin 14.9 g/dL (12.2-16.2); Immature Granulocytes % 0.3 %; Mean Corpuscular HGB Conc 34.3 g/dL (31.8-35.4); Mean Corpuscular Hemoglobin 31.0 pg (27.0-31.2); Mean Corpuscular Volume 90.4 fl (81-99); Nucleated Red Blood Cells % 0 %; Platelet Count 263 K/mm3 (142-424); Red Blood Count 4.80 M/mm3 (4.20-5.40); Red Cell Distribution Width-SD 41.5 fL; White Blood Count 6.0 K/mm3 (4.8-10.8)
[2025-04-13 10:28] LABS: Albumin Level 4.4 g/dl (3.5-5.0); Chloride 104 mmol/L (98-107); Sodium 140 mmol/L (136-145)
[2025-04-13 10:29] LABS: Potassium 3.8 mmoL/L (3.5-5.1)
[2025-04-13 10:31] LABS: Alanine Aminotransferase 18 U/L (12-78); Alkaline Phosphatase 91 U/L (38-126); Anion Gap 12.8 mEq/L (5-15); Aspartate Amino Transferase 19 U/L (14-36); Bilirubin,Direct 0.0 mg/dl (0.0-0.4); Bilirubin,Indirect 1.0 mg/dL (0.0-0.9); Bilirubin,Total 1.0 mg/dl (0.2-1.3); Bilirubin,Unconjugated 1.0 mg/dL (0.0-1.1); Blood Urea Nitrogen 8 mg/dl (7-17); Carbon Dioxide 27 mmol/L (22.0-30.0); Cholesterol 148 mg/dl (140-200); Creatinine,Serum 0.90 mg/dl (0.52-1.04); Estimated Glomerular Filt Rate 67 ml/min (>60); GFR (African American) 82 ML/MIN (>60); Glucose 93 mg/dl (74-100); Total Protein,Serum 7.8 g/dl (6.3-8.2); Triglycerides 46 mg/dl (30-150)
[2025-04-13 10:32] LABS: Calcium 9.2 mg/dl (8.4-10.2); Magnesium 2.1 mg/dl (1.6-2.3)
[2025-04-13 10:48] LABS: Free T4 (Free Thyroxine) 1.20 ng/dl (0.78-2.19)
[2025-04-13 11:02] LABS: Thyroid Stimulating Hormone 1.21 uIU/mL (0.465-4.68)
[2025-04-13 15:34] LABS: HDL Cholesterol 43 mg/dl (40-60)
== END 2025-04-13 23:59 | disposition home or self-care (01) ==
LOC: LAB 09:26
PROVIDERS: PCP Nurse Practitioner Family; Visit Provider Nurse Practitioner Family
DX: E78.5 Hyperlipidemia, unspecified (principal); I10 Essential (primary) hypertension
CPT/HCPCS: 36415; 80048; 80061; 80076; 83735; 84439; 84443; 85025